=== PATIENT | female | born 1985 | race Caucasian/White ===

== ENCOUNTER 2018-11-13 04:51 | Inpatient (IN) | payer OTHER ==
[~2018-11-13] VITALS: Ht 157.5 cm; Wt 66.7 kg
--- NOTE | 2018-11-14 09:09 | PR ---
[facility] [address], [place] [address] Signed PP Progress Notes Datetime Report Generated by CPN: 11/14/2018 09:09 SUBJECTIVE: [id number] Pain: Within normal limits Nausea/Vomiting: Denies Flatus: Yes Vital Signs: [id number] Vital Signs: Reviewed; Within Normal Limits EXAM: [id number] Cardiovascular: Normal Respiratory: Normal Abdomen/Uterus: Normal Lochia: Normal Vulva/Perineum: Not Done Breasts: Not Done CVA Tenderness: Normal Extremities: Normal Incision: Not Applicable Progress: Not Applicable Exam Comments: Fundus firm U-2 nontender. Pt anxious for discharge so she can smoke IMPRESSION/PLAN/PROCEDURES: [id number] Impression: Normal progression Plan: Discharge Progress Notes: Pt seen and examined. Doing well. Ambulating, voiding, and tolerating full diet. Pain and lochia minimal. Bottle feeding. Pt anxious for discharge so she can smoke. Nicotine patches helping somewhat. Reviewed OB records. Plan f/u in 2 wks. Desires depo followed by tubal ligation for pp contraception Signing Physician: Thomas Peña DO Copies: ~ *Electronically Signed* 11/14/18 0909 THOMAS PEÑA DO PATIENT NAME: KAYLA GONZALEZ PROGRESS NOTE DATE OF : 81 PHYSICIAN: THOMAS PEÑA DO RPT #: [id number] REPORT IS CONFIDENTIAL AND NOT TO BE RELEASED WITHOUT AUTHORIZATION
== END 2018-11-14 10:55 | disposition home or self-care (01) | DRG 807 ==
LOC: FBCO 04:51 → FBC 05:12
PROVIDERS: ADMIT Obstetrics & Gynecology
PROC: 10E0XZZ Delivery of Products of Conception, External Approach (ICD-10-PCS; principal; 2018-11-13)
PROC: 10907ZC Drainage of Amniotic Fluid, Therapeutic from Products of Conception, Via Natural or Artificial Opening (ICD-10-PCS; 2018-11-13)
DX: O62.3 Precipitate labor (principal); Z37.0 Single live birth; Z3A.38 38 weeks gestation of pregnancy; O99.334 Smoking (tobacco) complicating childbirth; F17.210 Nicotine dependence, cigarettes, uncomplicated
CPT/HCPCS: 36415; 85027; J2590; Q0177

== ENCOUNTER 2019-04-14 18:33 | Emergency (ER) | payer OTHER ==
[~2019-04-14] VITALS: Ht 157.5 cm; Wt 62.6 kg
--- OUTSIDE RECORDS SUMMARY | ~2019-04-14 | XMS | Encounter Summary ---
Demographics + + + | Address | [address] | | | [place] [address] | + + + | Home Phone | | + + + | Preferred Language | Unknown | + + + | Marital Status | Single | + + + | Methodist Affiliation | Unknown | + + + | Race | Unknown | + + + | Ethnic Group | Unknown | + + + Author + + + | Author | [facility] | | | and [place] | + + + | Organization | [facility] | | | and [place] | + + + | Address | Unknown | + + + | Phone | Unavailable | + + + Support + + +---------+ + | Name | Relationship | Address | Phone | + + +---------+ + | Jolie Stock | ECON | Unknown | | + + +---------+ + Care Team Providers + +------+ + | Care Epidemiologist Name | Role | Phone | + +------+ + PCP | Unavailable | + +------+ + Encounter Details +--------+ + + + + | Date | Type | Department | Care Team | Description | +--------+ + + + + | 11/20/ | Hospital | [facility] | [place], | | | 2008 | Encounter | MED CTR EMERGENCY | David Thomas MD [address] | | | | | [place] [address] | [place] | | | | | [place], [place] | [place] [address] | | | | | [address] | [phone] | | | | | [phone] | | | +--------+ + + + + Social History + +-------+ +--------+------+ | Tobacco Use | Types | Packs/Day | Years | Date | | | | | Used | | + +-------+ +--------+------+ | Never Assessed | | | | | + +-------+ +--------+------+ + + + | Sex Assigned at | Date Recorded | | | | + + + | Not on file | | + + + + + + + | Job Start Date | Occupation | Industry | + + + + | Not on file | Not on file | Not on file | + + + + + + + + | Travel History | Travel Start | Travel End | + + + + + + | No recent travel history available. | + + documented as of this encounter Plan of Treatment Not on filedocumented as of this encounter Visit Diagnoses Not on filedocumented in this encounter"
--- OUTSIDE RECORDS SUMMARY | ~2019-04-14 | XMS | Encounter Summary ---
Demographics + + + | Address | [address] | | | [place] [address] | + + + | Home Phone | | + + + | Preferred Language | Unknown | + + + | Marital Status | Single | + + + | Bahai Affiliation | Unknown | + + + | Race | Unknown | + + + | Ethnic Group | Unknown | + + + Author + + + | Author | [facility] | | | and [place] | + + + | Organization | [facility] | | | and [place] | [...] Team Providers + +------+ + | Care Tester Sound Name | Role | Phone | + +------+ + PCP | Unavailable | + +------+ + Encounter Details +--------+ + + + + | Date | Type | Department | Care Team | Description | +--------+ + + + + | 04/30/ | Hospital | [facility] | Nestor Harden, | | | 1998 - | Encounter | MED CTR WOMENS | [id number] | | | | | [facility] [address] | [place] | | | 05/[birth year]/ | | [address], | [place] [address] | | | 2000 | | [place] [address] | [phone] | | | | | [phone] | | | +--------+ + + + [...]
--- OUTSIDE RECORDS SUMMARY | ~2019-04-14 | XMS | Encounter Summary ---
Demographics + + + | Address | [address] | | | [place] [address] | + + + | Home Phone | | + + + | Preferred Language | Unknown | + + + | Marital Status | Single | + + + | Christian Affiliation | Unknown | + + + | Race | Unknown | + + + | Ethnic Group | Unknown | + + + Author + + + | Author | [facility] | | | and [place] | + + + | Organization | [facility] | | | and [place] [...] Team Providers + +------+ + | Care Pool Manager Name | Role | Phone | + +------+ + PCP | Unavailable | + +------+ + Encounter Details +--------+ + + + + | Date | Type | Department | Care Team | Description | +--------+ + + + + | 12/17/ | Hospital | [facility] | Nestor Harden, | | | 2008 | Encounter | MED CTR LABORATORY | [id number] | | | | | [address] | [place] | | | | | [place] | [place], [place] [address] | | | | | [address] | [phone] | | | | | [phone] | | | +--------+ + + + [...]
--- OUTSIDE RECORDS SUMMARY | ~2019-04-14 | XMS | Encounter Summary ---
Demographics + + + | Address | [address] | | | [place] [address] | + + + | Home Phone | | + + + | Preferred Language | Unknown | + + + | Marital Status | Single | + + + | Samaritan Affiliation | Unknown | + + + | Race | Unknown | + + + | Ethnic Group | Unknown | + + + Author + + + | Author | [facility] | | | and [place] | + + + | Organization | [facility] | | | and [place] | [...] Team Providers + +------+ + | Care Air Carrier Maintenance Inspector Name | Role | Phone | + +------+ + PCP | Unavailable | + +------+ + Encounter Details +--------+ + + + + | Date | Type | Department | Care Team | Description | +--------+ + + + + | 02/02/ | Hospital | [facility] | Nestor Harden, | | | 1998 | Encounter | MED CTR GENERIC OP | [id number] | | | | | CONV DEPT [address] | [place] | | | | | [place], | [place] [address] | | | | | [place] [address] | [phone] | | | | | [phone] | | | +--------+ + + + [...]
--- OUTSIDE RECORDS SUMMARY | ~2019-04-14 | XMS | Encounter Summary ---
Demographics + + + | Address | [address] | | | [place] [address] | + + + | Home Phone | | + + + | Preferred Language | Unknown | + + + | Marital Status | Single | + + + | Orthodoxy Affiliation | Unknown | + + + | Race | Unknown | + + + | Ethnic Group | Unknown | + + + Author + + + | Author | [facility] | | | and [place] | + + + | Organization | [facility] | | | and [...] Team Providers + +------+ + | Care Sheriff Sergeant Name | Role | Phone | + +------+ + PCP | Unavailable | + +------+ + Encounter Details +--------+ + + + + | Date | Type | Department | Care Team | Description | +--------+ + + + + | 12/25/ | Hospital | [facility] | | | | 2001 | Encounter | MED CTR EMERGENCY | | | | | | CENTER [address] | | | | | | [place] | | | | | | [address] | | | | | | [phone] | | | +--------+ + + + [...]
--- OUTSIDE RECORDS SUMMARY | ~2019-04-14 | XMS | Encounter Summary ---
Demographics + + + | Address | [address] | | | [place] [address] | + + + | Home Phone | | + + + | Preferred Language | Unknown | + + + | Marital Status | Single | + + + | Religion Affiliation | Unknown | + + + | Race | Unknown | + + + | Ethnic Group | Unknown | + + + Author + + + | Author | [facility] | | | and [place] | + + + | Organization | [facility] | | | and [place] [...] Team Providers + +------+ + | Care Chair Pad Maker Name | Role | Phone | + +------+ + PCP | Unavailable | + +------+ + Encounter Details +--------+ + + + + | Date | Type | Department | Care Team | Description | +--------+ + + + + | 06/08/ | Hospital | [facility] | Gagandeep Humphries | | | 2009 - | Encounter | MED CTR EMERGENCY | MD Taras [address] | | | | | [place] [address] | [place] | | | 06/09/ | | [place] | [place] [address] | | | 2009 | | [address] | [phone] | | | | | [phone] | | | +--------+ + + + [...]
--- OUTSIDE RECORDS SUMMARY | ~2019-04-14 | XMS | Encounter Summary ---
Demographics + + + | Address | [address] | | | [place] [address] | + + + | Home Phone | | + + + | Preferred Language | Unknown | + + + | Marital Status | Single | + + + | Jew Affiliation | Unknown | + + + | Race | Unknown | + + + | Ethnic Group | Unknown | + + + Author + + + | Author | [facility] | | | and [place] | + + + | Organization | [facility] | | | and [...] Team Providers + +------+ + | Care Sql Server Architect Name | Role | Phone | + +------+ + PCP | Unavailable | + +------+ + Encounter Details +--------+ + + + + | Date | Type | Department | Care Team | Description | +--------+ + + + + | 05/25/ | Hospital | [facility] | | | | 2010 | Encounter | MED CTR EMERGENCY | | | | | | CENTER [address] | | | | | | [place] | | | | | | [address] | | | | | | [phone] | | | +--------+ + + + [...]
--- OUTSIDE RECORDS SUMMARY | ~2019-04-14 | XMS | Encounter Summary ---
Demographics + + + | Address | [address] | | | [place] [address] | + + + | Home Phone | | + + + | Preferred Language | Unknown | + + + | Marital Status | Single | + + + | Rastafarian Affiliation | Unknown | + + + | Race | Unknown | + + + | Ethnic Group | Unknown | + + + Author + + + | Author | [facility] | | | and [place] | + + + | Organization | [facility] | | | and [place] [...] Team Providers + +------+ + | Care Mutuel Department Manager Name | Role | Phone | + +------+ + | No, Physician | PCP | Unavailable | + +------+ + Reason for Visit + + + | Reason | Comments | + + + | Urinary Frequency | Rm 1; started yesterday, denies back pain or fever | + + + | Dysuria | bladder pain /10 | + + + Encounter Details +--------+---------+ + + + | Date | Type | Department | Care Team | Description | +--------+---------+ + + + | 11/22/ | Office | [facility] | Heidi Zimmerman | Urinary tract | | 2016 | Visit | CARE [address] | DO Raymond Solomon | infection with | | | | [place], [place] | [place] | hematuria, site | | | | [address] | [address] | unspecified (Primary | | | | [phone] | | Dx) | +--------+---------+ + + + Social History + +-------+ +--------+------+ | Tobacco Use | Types | Packs/Day | Years | Date | | | | | Used | | + +-------+ +--------+------+ | Current Every Day | | 0.5 | | | | Smoker | | | | | + +-------+ +--------+------+ + +---+---+---+ | Smokeless Tobacco: | | | | | Never Used | | | | + +---+---+---+ + + +---------+ + | Alcohol Use | Drinks/Week | oz/Week | Comments | + + +---------+ + | Yes | 0 Standard drinks | 0.0 | occ | | | or equivalent | | | + + +---------+ + + + + | Sex Assigned at [...] + + documented as of this encounter Last Filed Vital Signs + + + + + | Vital Sign | Reading | Time Taken | Comments | + + + + + | Blood Pressure | 108/66 | 11/23/2015 9:49 AM | | | | | PDT | | + + + + + | Pulse | 95 | 11/23/2015 9:49 AM | | | | | PDT | | + + + + + | Temperature | 36.8 C (98.3 F) | 11/23/2015 9:49 AM | | | | | PDT | | + + + + + | Respiratory Rate | 16 | 11/23/2015 9:49 AM | | | | | PDT | | + + + + + | Oxygen Saturation | 99% | 11/23/2015 9:49 AM | | | | | PDT | | + + + + + | Inhaled Oxygen | - | - | | | Concentration | | | | + + + + + | Weight | 55.2 kg (121 lb 11.2 | 11/23/2015 9:49 AM | | | | oz) | PDT | | + + + + + | Height | 157.5 cm (5' 2") | 11/23/2015 9:49 AM | | | | | PDT | | + + + + + | Body Mass Index | 22.26 | 11/23/2015 9:49 AM | | | | | PDT | | + + + + + documented in this encounter Patient Instructions Patient Instructions Heidi Zimmerman DO - 11/23/2015 10:02 AM PDTPrescription for Keflex and Pyridium has been sent to pharmacy. Take these medications as directed. Your urine has been sent for culture and if there are any abnormal results she will be noti fied Drink lots of fluids especially cranberry Symptoms worsen or fail to improveElectronically signed by Heidi Zimmerman DO at 10:02 AM PDT documented in this encounter Progress Notes Heidi Zimmerman DO - 11/23/2015 9:59 AM PDTFormatting of this note might be diffe rent from the original. Subjective: Patient ID: Katlyn Dubois is a 30 y.o. female. HPI Comments: Patient here with chief complaint of dysuria. She states that yesterday she started having some symptoms. She states that she thought that she just was dehydrated and so she started drinking a lot of water. Overnight she had to get several times urgently to go to the bathroom. She states that now it pelayo when she urinates and after she's done uri nating she still feels like she needs to go. Patient states that she has not had any flank pain. She's not had any fevers or chills. Patient states he has never been hospitalized fo r this. She'll her last UTI was several years ago. She denies any abnormal vaginal dischar ge and has no concerns for any STDs Patient's medications, allergies, past medical, surgical, social and family histories were obtained and reviewed as appropriate. Review of Systems All other systems reviewed and are negative. Objective: Physical Exam Constitutional: She is oriented to person, place, and time. She appears well-developed and well-nourished. Abdominal: Soft. Bowel sounds are normal. Patient is no flank pain on percussion Neurological: She is alert and oriented to person, place, and time. Skin: Skin is warm and dry. Nursing note and vitals reviewed. Assessment: UTI Plan: Pt is here with chief complaint of dysuria. She had a urinalysis that showed positive for nitrites and large leukocytes. There is also a moderate amount of blood. This was sent fo r culture and she will be notified of any abnormal results. Patient was started on Keflex and Pyridium and she should take these medications as directed. She is to drink lots of flu ids and stay well hydreated. She should return if symptoms worsen or fail to improve. Pt co mfortable with plan documented in this encounter Plan of Treatment Not on filedocumented as of this encounter Procedures + +--------+ + + + | Procedure Name | Priori | Date/Time | Associated Diagnosis | Comments | | | ty | | | | + +--------+ + + + | POCT URINALYSIS, | Routin | 11/23/2015 | Urinary tract | Results for this | | AUTO WITH CONF | e | 6:15 PM | infection with | procedure are in the | | | | PDT | hematuria, site | results section. | | | | | unspecified | | + +--------+ + + + | CULTURE, URINE | Routin | 11/23/2015 | Urinary tract | Results for this | | | e | 10:07 AM | infection with | procedure are in the | | | | PDT | hematuria, site | results section. | | | | | unspecified | | + +--------+ + + + documented in this encounter Results POCT Urinalysis Dipstick Automated (11/23/2015 6:15 PM PDT) + + + + + + | Component | Value | Ref Range | Performed | Pathologist | | | | | At | Signature | + + + + + + | Color, UA, | Yellow | Yellow, Light | | | | POC | | Yellow | | | + + + + + + | Clarity, | Turbid | | | | | UA, POC | | | | | + + + + + + | Glucose, | Negative | Negative | | | | UA, POC | | | | | + + + + + + | Bilirubin, | Negative | Negative | | | | UA, POC | | | | | + + + + + + | Ketones, | Negative | Negative, 100 | | | | UA, POC | | mg/dL | | | + + + + + + | Specific | 1.030 | 1.001 - 1.030 | | | | Edgar, | | | | | | UA, POC | | | | | + + + + + + | Blood, UA, | Moderate (A) | Negative | | | | POC | | | | | + + + + + + | pH, UA, POC | 6.5 | 5.0, 6.0, 7.0, | | | | | | 8.0, 5.5, 6.5, | | | | | | 7.5 | | | + + + + + + | Protein, | 100 mg/dL (A) | Negative | | | | UA, POC | | | | | + + + + + + | Urobilinoge | 1.0 E.U./dL | 0.2, Negative, | | | | n, UA, POC | | Normal, < 0.2 | | | | | | mg/dL, 1 mg/dL, | | | | | | < 0.2 E.U./dl, | | | | | | 1.0 E.U./dL, | | | | | | 0.2 mg/dL | | | + + + + + + | Nitrite, | Negative | Negative | | | | UA, POC | | | | | + + + + + + | Leukocyte | Large (A) | Negative | | | | Esterase, | | | | | | UA, POC | | | | | + + + + + + | Reducing | | | | | | Substances, | | | | | | Urine | | | | | + + + + + + | Ictotest | | Negative | | | + + + + + + | Remark | | | | | + + + + + + + + | Specimen | + + | Urine specimen | | (specimen) | + + Culture, Urine (11/23/2015 10:07 AM PDT) + + + + + + | Component | Value | Ref Range | Performed | Pathologist | | | | | At | Signature | + + + + + + | Culture | 50,000 CFU/ml Mixed | | [facility] | | | | pushpa (multiple | | [facility] | | | | morphologies | | MEDICAL | | | | present)Comment: | | CENTER - | | | | Suggests contamination | | LABORATORY | | | | with urogenital or skin | | | | | | pushpa.No further work-up | | | | | | to follow. | | | | + + + + + + + + | Specimen | + + | Urine - Urine | | specimen obtained by | | clean catch | | procedure (specimen) | + + + + + + + | Performing | Address | City/State/Zipcode | Phone Number | | Organization | | | | + + + + + | [facility] | [address] | [place], [place] | [phone] | | [facility] | | [address] | | | - LABORATORY | | | | + + + + + documented in this encounter Visit Diagnoses + + | Diagnosis | + + | Urinary tract infection with hematuria, site unspecified - Primary | + + documented in this encounter
--- OUTSIDE RECORDS SUMMARY | ~2019-04-14 | XMS | Encounter Summary ---
Demographics + + + | Address | [address] | | | [place] [address] | + + + | Home Phone | | + + + | Preferred Language | Unknown | + + + | Marital Status | Single | + + + | Mu-Ism Affiliation | Unknown | + + + | Race | Unknown | + + + | Ethnic Group | Unknown | + + + Author + + + | Author | [facility] | | | and [place] | + + + | Organization | [facility] | | | and [...] Team Providers + +------+ + | Care Transmitter Tester Name | Role | Phone | + +------+ + PCP | Unavailable | + +------+ + Encounter Details +--------+ + + + + | Date | Type | Department | Care Team | Description | +--------+ + + + + | 07/05/ | Hospital | [facility] | Gagandeep Humphries | | | 2009 | Encounter | MED CTR EMERGENCY | MD [address] | | | | | [place] [address] | [address] | | | | | [place], [place] | [place] [address] | | | | | [address] | [phone] | | | | | [phone] | | | +--------+ + + + [...]
--- OUTSIDE RECORDS SUMMARY | ~2019-04-14 | XMS | Encounter Summary ---
Demographics + + + | Address | [address] | | | [place] [address] | + + + | Home Phone | | + + + | Preferred Language | Unknown | + + + | Marital Status | Single | + + + | Catholic Affiliation | Unknown | + + + | Race | Unknown | + + + | Ethnic Group | Unknown | + + + Author + + + | Author | [facility] | | | and [place] | + + + | Organization | [facility] | | | and [place] [...] Team Providers + +------+ + | Care Career Specialist Name | Role | Phone | + +------+ + PCP | Unavailable | + +------+ + Encounter Details +--------+ + + + + | Date | Type | Department | Care Team | Description | +--------+ + + + + | 08/06/ | Hospital | [facility] | Heidi Zimmerman | | | 2011 | Encounter | MED CTR EMERGENCY | DO Raymond Solomon | | | | | CENTER [address] | [facility] [place] | | | | | [place], [place] | [address] | | | | | [address] | | | | | | [phone] | | | +--------+ + + + [...] | + +--------+ + + + | XR KNEE LEFT 1 - 2 | | 08/07/2011 | | Results for this | | VW | | 3:33 PM | | procedure are in the | | | | PDT | | results section. | + +--------+ + + + documented in this encounter Results XR Knee Left 1 - 2 Vw (08/07/2011 3:33 PM PDT) + + | Specimen | + + | | + + + + + | Narrative | Performed At | + + + | [facility] | [place] | | [address] | [facility] | | LEFT KNEE, LIMITED TWO VIEWS: | DIAG IMG | | 08/07/2011 CLINICAL HISTORY: SLIPPED IN THE TUB WITH LEFT KNEE | | | INJURY. FINDINGS: The knee is radiographically normal. No | | | fracture or dislocation is seen. The suprapatell ar bursa region is | | | free of effusion. No loose bodies are seen. IMPRESSION: | | | NEGATIVE KNEE SERIES. Dictated Date/Time: 08/08/2011 08:47 | | | Transcribed Date/Time: 08/08/2011 08:51 Manager Employee Benefits: | | | <Electronically Signed by Jeremiah Schuster MD> 08/08/11 0909 | | + + + + + | Procedure Note | + + | Aris Zaragoza Conversion - 07/05/2013 4:54 PM [facility] | | Diagnostic Imaging Department [address] [facility] [place] | | LEFT KNEE, LIMITED TWO VIEWS: 08/07/2011 CLINICAL | | HISTORY: SLIPPED IN THE TUB WITH LEFT KNEE INJURY. FINDINGS: The knee is | | radiographically normal. No fracture or dislocation is seen. The suprapatellar bursa | | region is free of effusion. No loose bodies are seen. IMPRESSION: NEGATIVE KNEE SERIES. | | Dictated Date/Time: 08/08/2011 08:47Transcribed Date/Time: 08/08/2011 | | 08:51Transcriptionist: <Electronically Signed by Jeremiah Schuster MD> 08/08/11 | | 0909 | | | |FINDINGS: The knee is radiographically normal. No fracture or dislocation is seen. The s uprapatell | |ar bursa region is free of effusion. No loose bodies are seen. | | | |IMPRESSION: NEGATIVE KNEE SERIES. | | | | | | | |Dictated Date/Time: 08/08/2011 08:47 | |Transcribed Date/Time: 08/08/2011 08:51 | |Manager Employee Benefits: [employer] | |<Electronically Signed by Jeremiah Schuster MD> 08/08/11 0909 | + + + +---------+ + + | Performing | Address | City/State/Zipcode | Phone Number | | Organization | | | | + +---------+ + + | [place] | | | | | [place] | | | | + +---------+ + + documented in this encounter Visit Diagnoses Not on filedocumented in this encounter"
--- OUTSIDE RECORDS SUMMARY | ~2019-04-14 | XMS | Clinical Summary ---
Demographics + + + | Address | [address] | | | [place] [address] | + + + | Home Phone | | + + + | Preferred Language | Unknown | + + + | Marital Status | Single | + + + | Roman Catholic Affiliation | Unknown | + + + | Race | Unknown | + + + | Ethnic Group | Unknown | + + + Author + + + | Author | [facility] | | | and [place] | + + + | Organization | [facility] | | | and [place] [...] Team Providers + +------+ + | Care Crisis Mental Health Therapist Name | Role | Phone | + +------+ + | No, Physician | PCP | Unavailable | + +------+ + Allergies No Known Allergies Medications + + + +---------+------+------+-------+ | Medication | Sig | Dispensed | Refills | Star | End | Statu | | | | | | t | Date | s | | | | | | Date | | | + + + +---------+------+------+-------+ | ALBUTEROL IN | Inhale into the | | 0 | | | Activ | | | lungs. | | | | | e | + + + +---------+------+------+-------+ Active Problems + + + | Problem | Noted Date | + + + | CHOLELITHIASIS, WITH ACUTE CHOLECYSTITIS, WITH OBSTRUCTION | 09/29/2011 | + + + Social History + +-------+ [...] | 0 Standard drinks | 0.0 | rare | | | or equivalent | | [...] recent travel history available. | + + Last Filed Vital Signs + + + + + | Vital Sign | Reading | Time Taken | Comments | + + + + + | Blood Pressure | 108/70 | 01/10/2017 1:57 AM | | | | | PDT | | + + + + + | Pulse | 99 | 01/10/2017 1:53 AM | | | | | PDT | | + + + + + | Temperature | 36.2 C (97.2 F) | 01/10/2017 12:10 AM | Simultaneous filing. | | | | PDT | User may not have | | | | | seen previous data. | + + + + + | Respiratory Rate | 22 | 01/10/2017 12:10 AM | Simultaneous filing. | | | | PDT | User may not have | | | | | seen previous data. | + + + + + | Oxygen Saturation | 100% | 01/10/2017 1:53 AM | | | | | PDT | | + + + + + | Inhaled Oxygen | - | - | | | Concentration | | | | + + + + + | Weight | 53.5 kg (118 lb) | 01/10/2017 12:10 AM | Simultaneous filing. | | | | PDT | User may not have | | | | | seen previous data. | + + + + + | Height | 157.5 cm (5' 2") | 01/10/2017 12:10 AM | Simultaneous filing. | | | | PDT | User may not have | | | | | seen previous data. | + + + + + | Body Mass Index | 21.58 | 01/10/2017 12:10 AM | | | | | PDT | | + + + + + Plan of Treatment + + + + + | Health Maintenance | Due Date | Last Done | Comments | + + + + + | Vaccine: | | | | | Dtap/Tdap/Td (1 - | 3 | | | | Tdap) | | | | + + + + + | Cervical Cancer | | | | | Screening (Pap) | 4 | | | + + + + + | Vaccine: Influenza | | | | | (#1) | 9 | | | + + + + + Results Not on filefrom Last 3 Months Insurance + +--------+ +--------+ +---------+--------+ | Payer | Benefi | Subscriber | Effect | Phone | Address | Type | | | t Plan | ID | etta | | | | | | / | | Dates | | | | | | Group | | | | | | + +--------+ +--------+ +---------+--------+ | [employer] | [employer] | [id number] | | [phone] | | Medica | | MEDICAID HMO | HEALTH | | 015-Pr | 1 | | id | | | MDCD | | esent | | | | | | [place] | | | | | | + +--------+ +--------+ +---------+--------+ + +--------+ +--------+ + + | Guarantor Name | Accoun | Relation to | Date | Phone | Billing Address | | | t Type | Patient | of | | | | | | | | | | + +--------+ +--------+ + + | Katlyn Dubois | Person | Self | [birth year] | [address] | | | al/Fam | | 1986 | [phone] | [place], [place] | | | [place] | | | [address] (Home) | [address] | + +--------+ +--------+ + + Advance Directives + + + + + | Type | Date Recorded | Patient | Explanation | | | | Box Chipper | | + + + + + | Power of | | | | | Malted Milk Supervisor | | | | + + + + + | Advance | 01/11/2016 10:51 | | | | Directive | PM | | | + + + + + + + + + + | Code Status | Date | Date | Comments | | | Activated | Inactivated | | + + + + + | Full Code | 07/31/2016 | 07/31/2016 | | | | 6:47 PM | 8:45 PM | | + + + + +
--- OUTSIDE RECORDS SUMMARY | ~2019-04-14 | XMS | Encounter Summary ---
Demographics + + + | Address | [address] | | | [place] [address] | + + + | Home Phone | | + + + | Preferred Language | Unknown | + + + | Marital Status | Single | + + + | Restoration Affiliation | Unknown | + + + | Race | Unknown | + + + | Ethnic Group | Unknown | + + + Author + + + | Author | [facility] | | | and [place] | + + + | Organization | [facility] | | | and [place] | [...] Team Providers + +------+ + | Care Editor In Chief Name | Role | Phone | + +------+ + PCP | Unavailable | + +------+ + Encounter Details +--------+ + + + + | Date | Type | Department | Care Team | Description | +--------+ + + + + | 10/05/ | Hospital | [facility] | | | | 2008 | Encounter | [facility] | | | | | CENTER [address] | | | | | | [place] | | | | | | [id number] | | | | | | [phone] | | | +--------+ + + + [...]
--- OUTSIDE RECORDS SUMMARY | ~2019-04-14 | XMS | Encounter Summary ---
Demographics + + + | Address | [address] | | | [place] [address] | + + + | Home Phone | | + + + | Preferred Language | Unknown | + + + | Marital Status | Single | + + + | Jain Affiliation | Unknown | + + + | Race | Unknown | + + + | Ethnic Group | Unknown | + + + Author + + + | Author | [facility] | | | and [place] | + + + | Organization | [facility] | | | and [place] | [...] Team Providers + +------+ + | Care Manager Wound Name | Role | Phone | + +------+ + PCP | Unavailable | + +------+ + Encounter Details +--------+ + + + + | Date | Type | Department | Care Team | Description | +--------+ + + + + | 02/08/ | Abstract | [facility] | [facility] | | | 2012 | | Conversion Location | [facility] | | | | | [phone] | | | +--------+ + + + [...] + + + | Blood Pressure | 110/62 | 09/29/2011 12:00 AM | | | | | PDT | | + + + + + | Pulse | - | - | | + + + + + | Temperature | - | - | | + + + + + | Respiratory Rate | - | - | | + + + + + | Oxygen Saturation | - | - | | + + + + + | Inhaled Oxygen | - | - | | | Concentration | | | | + + + + + | Weight | 54.4 kg (120 lb) | 09/29/2011 12:00 AM | | | | | PDT | | + + + + + | Height | 160 cm (5' 3") | 09/29/2011 12:00 AM | | | | | PDT | | + + + + + | Body Mass Index | 21.26 | 09/29/2011 12:00 AM | | | | | PDT | | + + + + + documented in this encounter Plan of Treatment Not on filedocumented as of this encounter Visit Diagnoses Not on filedocumented in this encounter
--- OUTSIDE RECORDS SUMMARY | ~2019-04-14 | XMS | Encounter Summary ---
Demographics + + + | Address | [address] | | | [place] [address] | + + + | Home Phone | | + + + | Preferred Language | Unknown | + + + | Marital Status | Single | + + + | Zoroastrianism Affiliation | Unknown | + + + | Race | Unknown | + + + | Ethnic Group | Unknown | + + + Author + + + | Author | [facility] | | | and [place] | + + + | Organization | [facility] | | | and [place] | + + + | Address | Unknown | + + + | Phone | Unavailable | + + + Support + + +---------+ + | Name | Relationship | Address | Phone | + + +---------+ + | Jolie Montrell | ECON | Unknown | | + + +---------+ + Care Team Providers + +------+ + | Care Delivery Sales Worker Name | Role | Phone | + +------+ + | No, Physician | PCP | Unavailable | + +------+ + Reason for Visit + + + | Reason | Comments | + + + | Anxiety | | + + + | Chest Pressure | | + + + Encounter Details +--------+ + + + + | Date | Type | Department | Care Team | Description | +--------+ + + + + | 01/10/ | Emergency | [facility] | Chan Hi, | Chest tightness or | | 2016 - | | [facility] | MD [address] | pressure (Primary | | | | CENTER [address] | [facility] | Dx); Palpitations | | 01/11/ | | [place] | [place] [address] | | | 2015 | | [address] | [phone] | | | | | [phone] | | | +--------+ + + + [...] + + + | Blood Pressure | 108/63 | 01/11/2016 11:30 PM | | | | | PDT | | + + + + + | Pulse | 88 | 01/11/2016 11:43 PM | | | | | PDT | | + + + + + | Temperature | 36.4 C (97.5 F) | 01/11/2016 8:24 PM | | | | | PDT | | + + + + + | Respiratory Rate | 15 | 01/11/2016 11:30 PM | | | | | PDT | | + + + + + | Oxygen Saturation | 100% | 01/11/2016 11:43 PM | | | | | PDT | | + + + + + | Inhaled Oxygen | - | - | | | Concentration | | | | + + + + + | Weight | 54.4 kg (120 lb) | 01/11/2016 8:24 PM | | | | | PDT | | + + + + + | Height | 157.5 cm (5' 2") | 01/11/2016 8:24 PM | | | | | PDT | | + + + + + | Body Mass Index | 21.95 | 01/11/2016 8:24 PM | | | | | PDT | | + + + + + documented in this encounter Discharge Instructions Instructions Chan Hi MD - 01/11/2016Avoid caffeine or any other stimulants Establish a primary care provider and follow up with him/her Return if symptoms worsen or other concerns develop AttachmentsThe following attachments cannot be sent through Care Everywhere.CHEST PAIN, UN[facility] ERTAIN CAUSE ([place])PALPITATIONS ([place])documented in this encounter Medications at Time of Discharge + + + +---------+--------+ + | Medication | Sig | Dispensed | Refills | Start | End Date | | | | | | Date | | + + + +---------+--------+ + | ALBUTEROL IN | Inhale into the | | 0 | | | | | lungs. | | | | | + + + +---------+--------+ + documented as of this encounter Plan of Treatment Not on filedocumented as of this encounter Procedures + +--------+ + + + | Procedure Name | Priori | Date/Time | Associated Diagnosis | Comments | | | ty | | | | + +--------+ + + + | HOLTER MONITOR - 48 | Routin | 01/19/2016 | | Results for this | | HOUR | e | 12:23 PM | | procedure are in the | | | | PDT | | results section. | + +--------+ + + + | XR CHEST AP PORTABLE | STAT | 01/11/2016 | | Results for this | | | | 10:31 PM | | procedure are in the | | | | PDT | | results section. | + +--------+ + + + | TROPONIN I | Add-On | 01/11/2016 | | Results for this | | | | 10:20 PM | | procedure are in the | | | | PDT | | results section. | + +--------+ + + + | D-DIMER | STAT | 01/11/2016 | | Results for this | | | | 10:20 PM | | procedure are in the | | | | PDT | | results section. | + +--------+ + + + | CBC WITH | STAT | 01/11/2016 | | Results for this | | DIFFERENTIAL | | 10:20 PM | | procedure are in the | | | | PDT | | results section. | + +--------+ + + + | TSH | STAT | 01/11/2016 | | Results for this | | | | 10:20 PM | | procedure are in the | | | | PDT | | results section. | + +--------+ + + + | B TYPE NATRIURETIC | STAT | 01/11/2016 | | Results for this | | PEPTIDE | | 10:20 PM | | procedure are in the | | | | PDT | | results section. | + +--------+ + + + | MAGNESIUM | STAT | 01/11/2016 | | Results for this | | | | 10:20 PM | | procedure are in the | | | | PDT | | results section. | + +--------+ + + + | BASIC METABOLIC | STAT | 01/11/2016 | | Results for this | | PANEL | | 10:20 PM | | procedure are in the | | | | PDT | | results section. | + +--------+ + + + | ECG 12 LEAD | STAT | 01/11/2016 | | Results for this | | | | 9:18 PM | | procedure are in the | | | | PDT | | results section. | + +--------+ + + + documented in this encounter Results Holter monitor - 48 hour (01/19/2016 12:23 PM PDT) + + + | Narrative | Performed At | + + + | Leta Iglesias MD 01/19/2016 12:23 PATIENT NAME: Katlyn VALENTINE | | Clair Dubois : 1985: AGE: 30 y.o. MEDICAL RECORD | | | NUMBER: [id number] PRIMARY CARE: No Physician on file | | | READING TESTING AND REGULATING TECHNICIAN: Leta Iglesias MD 24-HOUR HOLTER | | | MONITOR REPORT DATE: 01/11/2016 IMPRESSION: 1. | | | The predominant rhythm is normal sinus with the heart rate | | | ranging between 68 and 140 beats per minute. The average heart | | | rate was 93 beats per minute during the 24:14 hour recording. 2. | | | Very rare premature ventricular contractions all in singles. 3. | | | Very rare premature atrial contractions including two paroxysmal | | | atrial tachycardia runs. The longest run was 5 beats and the | | | maximum rate was 102 beats per minute (13:55-1). Also noted were | | | rare (8) non-conducting P-waves. 4. 203 runs of sinus tachycardia. | | | The longest run was 151 beats (12:58-1) and the maximum rate was | | | 149 beats per minute (14:18-2). 5. The patient did not return a | | | diary. Signed by: Leta Iglesias MD [facility] 01/19/2016, | | | 10:08 | | + + + + +---------+ + + | Performing | Address | City/State/Zipcode | Phone Number | | Organization | | | | + +---------+ + + | [facility] | | | | + +---------+ + + XR Chest AP Portable (01/11/2016 10:31 PM PDT) + + | Specimen | + + | | + + + + + | Narrative | Performed At | + + + | XR CHEST AP PORTABLE 01/11/2016 10:31 PM HISTORY: ANXIETY CHEST | [facility] | | PRESSURE. COMPARISON: None. Findings: Heart size is within | | | normal limits. Aorta is normal. Mediastinum is unremarkable. Central | | | pulmonary vasculature is normal. The bilateral lungs are clear with | | | no evidence for pleural effusion or pneumothorax. There are no acute | | | osseous abnormalities. IMPRESSION - No acute findings. | | | Dictated and Signed by: Ismael Tee MD Electronically signed: | | | 01/12/2016 9:04 AM | | + + + + + | Procedure Note | + + | Nik, Rad Results In - 01/12/2016 9:07 AM PDT XR CHEST AP PORTABLE 01/11/2016 10:31 PM | | | | HISTORY: ANXIETY | | CHEST PRESSURE. | | | | COMPARISON: None. | | | | Findings: | | Heart size is within normal limits. Aorta is normal. Mediastinum is | | unremarkable. Central pulmonary vasculature is normal. The bilateral lungs are | | clear with no evidence for pleural effusion or pneumothorax. There are no acute | | osseous abnormalities. | | | | IMPRESSION - | | No acute findings. | | | | Dictated and Signed by: Ismael Tee MD | | Electronically signed: 01/12/2016 9:04 AM | + + + +---------+ + + | Performing | Address | City/State/Zipcode | Phone Number | | Organization | | | | + +---------+ + + | [facility] | | | | + +---------+ + + Troponin I (01/11/2016 10:20 PM PDT) + + + + + + | Component | Value | Ref Range | Performed | Pathologist | | | | | At | Signature | + + + + + + | Troponin I | <0.01Comment: Reference | <0.06 ng/mL | [facility] | | | | Ranges:0.00-0.06 = | | [facility] | | | | NORMAL>0.06 = | | MEDICAL | | | | SUSPICIOUS FOR | | CENTER - | | | | MYOCARDIAL DAMAGE NOTE: | | LABORATORY | | | | Values greater than 0.50 | | | | | | ng/mL have been shown | | | | | | to be strongly | | | | | | associated with acute | | | | | | myocardial infarction. | | | | | | The [employer] | | | | | | Cardiology (ACC) | | | | | | recommends a decision | | | | | | limit of 0.06 ng/mL for | | | | | | this assay. Results | | | | | | greater than 0.06 can | | | | | | reflect a pre-infarct | | | | | | acute coronary syndrome, | | | | | | but can also reflect | | | | | | myocardial necrosis or | | | | | | injury that is not due | | | | | | to coronary artery | | | | | | disease. Some of these | | | | | | causes are sepsis, | | | | | | hypocolemia, atrial | | | | | | fibrillation, heart | | | | | | failure, pulmonary | | | | | | embolism, myocarditis, | | | | | | myocardial contusion, | | | | | | and renal failure. The | | | | | | diagnosis of myocardial | | | | | | infarction should be | | | | | | based on a combination | | | | | | of the patient's | | | | | | clinical presentation | | | | | | and the clinical | | | | | | laboratory test results | | | | | | (especially serial | | | | | | troponin levels). | | | | + + + + + + + + | Specimen | + + | Blood | + + + + + + + | Performing | Address | City/State/Zipcode | Phone Number | | Organization | | | | + + + + + | [facility] | [address] | [place] | [phone] | | [facility] | | [address] | | | - LABORATORY | | | | + + + + + TSH (01/11/2016 10:20 PM PDT) + + + + + + | Component | Value | Ref Range | Performed | Pathologist | | | | | At | Signature | + + + + + + | TSH | 1.08Comment: All TSH | 0.34 - 5.60 | [facility] | | | | samples are screened | uIU/mL | [facility] | | | | using a 2nd Generation | | MEDICAL | | | | test, and are reflexed | | CENTER - | | | | to a 3rd Generation test | | LABORATORY | | | | if indicated. | | | | + + + + + + + + | Specimen | + + | Blood | + + + + + + + | Performing | Address | City/State/Zipcode | Phone Number | | Organization | | | | + + + + + | [facility] | [address] | [place] | [phone] | | [facility] | | [address] | | | - LABORATORY | | | | + + + + + Magnesium (01/11/2016 10:20 PM PDT) + +-------+ + + + | Component | Value | Ref Range | Performed | Pathologist | | | | | At | Signature | + +-------+ + + + | Magnesium | 2.1 | 1.8 - 2.5 mg/dL | [facility] | | | | | | [facility] | | | | | | MEDICAL | | | | | | CENTER - | | | | | | LABORATORY | | + +-------+ + + + + + | Specimen | + + | Blood | + + + + + + + | Performing | Address | City/State/Zipcode | Phone Number | | Organization | | | | + + + + + | [facility] | [address] | [place] | [phone] | | [facility] | | [address] | | | - LABORATORY | | | | + + + + + Basic Metabolic Panel (01/11/2016 10:20 PM PDT) + + + + + + | Component | Value | Ref Range | Performed | Pathologist | | | | | At | Signature | + + + + + + | Na | 138 | 136 - 149 | [facility] | | | | | mmol/L | [facility] | | | | | | MEDICAL | | | | | | CENTER - | | | | | | LABORATORY | | + + + + + + | K | 3.6 | 3.5 - 5.1 | [facility] | | | | | mmol/L | [facility] | | | | | | MEDICAL | | | | | | CENTER - | | | | | | LABORATORY | | + + + + + + | Cl | 107 | 98 - 109 mmol/L | [facility] | | | | | | [facility] | | | | | | MEDICAL | | | | | | CENTER - | | | | | | LABORATORY | | + + + + + + | CO2 | 21 (L) | 24 - 31 mmol/L | [facility] | | | | | | [facility] | | | | | | MEDICAL | | | | | | CENTER - | | | | | | LABORATORY | | + + + + + + | Anion Gap | 10 | 3 - 16 mmol/L | [facility] | | | | | | [facility] | | | | | | MEDICAL | | | | | | CENTER - | | | | | | LABORATORY | | + + + + + + | Glucose | 83 | 70 - 109 mg/dL | [facility] | | | | | | [facility] | | | | | | MEDICAL | | | | | | CENTER - | | | | | | LABORATORY | | + + + + + + | BUN | 7 | 7 - 18 mg/dL | [facility] | | | | | | [facility] | | | | | | MEDICAL | | | | | | CENTER - | | | | | | LABORATORY | | + + + + + + | Creatinine | 0.49 (L) | 0.60 - 1.30 | [facility] | | | | | mg/dL | [facility] | | | | | | MEDICAL | | | | | | CENTER - | | | | | | LABORATORY | | + + + + + + | eGFR if not | >60Comment: GLOMERULAR | >=60 | [facility] | | | | FILTRATION | mL/min/1.73m2 | [facility] | | | CAMEROONIAN | RATE,ESTIMATED | | MEDICAL | | | | mL/min/1.21v5Xryv than | | CENTER - | | | | 60 Chronic kidney | | LABORATORY | | | | disease,if found over a | | | | | | 3-month period.Less than | | | | | | 15 Kidney failureFor | | | | | | | | | | | | Americans,multiply the | | | | | | calculated GFR by 1.21. | | | | | | | | | | + + + + + + | Calcium | 9.3 | 8.3 - 10.5 | [facility] | | | | | mg/dL | [facility] | | | | | | MEDICAL | | | | | | CENTER - | | | | | | LABORATORY | | + + + + + + | BUN/Creatin | 14.3 | | [facility] | | | ine Ratio | | | [facility] | | | | | | MEDICAL | | | | | | CENTER - | | | | | | LABORATORY | | + + + + + + + + | Specimen | + + | Blood | + + + + + + + | Performing | Address | City/State/Zipcode | Phone Number | | Organization | | | | + + + + + | [facility] | [address] | [place] | [phone] | | [facility] | | [address] | | | - LABORATORY | | | | + + + + + CBC with Differential (01/11/2016 10:20 PM PDT) + + + + + + | Component | Value | Ref Range | Performed | Pathologist | | | | | At | Signature | + + + + + + | WBC | 7.4 | 4.0 - 11.0 K/uL | [facility] | | | | | | [facility] | | | | | | MEDICAL | | | | | | CENTER - | | | | | | LABORATORY | | + + + + + + | RBC | 4.58 | 3.70 - 5.20 | [facility] | | | | | M/uL | [facility] | | | | | | MEDICAL | | | | | | CENTER - | | | | | | LABORATORY | | + + + + + + | Hemoglobin | 13.7 | 11.5 - 16.0 | [facility] | | | | | g/dL | [facility] | | | | | | MEDICAL | | | | | | CENTER - | | | | | | LABORATORY | | + + + + + + | Hematocrit | 39.1 | 34.0 - 47.0 % | [facility] | | | | | | [facility] | | | | | | MEDICAL | | | | | | CENTER - | | | | | | LABORATORY | | + + + + + + | MCV | 85.3 | 83.0 - 101.0 fL | [facility] | | | | | | [facility] | | | | | | MEDICAL | | | | | | CENTER - | | | | | | LABORATORY | | + + + + + + | MCH | 30.0 | 28.0 - 35.0 pg | [facility] | | | | | | [facility] | | | | | | MEDICAL | | | | | | CENTER - | | | | | | LABORATORY | | + + + + + + | MCHC | 35.2 | 32.0 - 36.0 | [facility] | | | | | g/dL | [facility] | | | | | | MEDICAL | | | | | | CENTER - | | | | | | LABORATORY | | + + + + + + | RDW-CV | 13.0 | <15.0 % | [facility] | | | | | | [facility] | | | | | | MEDICAL | | | | | | CENTER - | | | | | | LABORATORY | | + + + + + + | Platelet | 236 | 140 - 440 K/uL | [facility] | | | Count | | | [facility] | | | | | | MEDICAL | | | | | | CENTER - | | | | | | LABORATORY | | + + + + + + | MPV | 7.3 | fL | [facility] | | | | | | [facility] | | | | | | MEDICAL | | | | | | CENTER - | | | | | | LABORATORY | | + + + + + + | % | 76.2 | 45.0 - 82.0 % | [facility] | | | Neutrophils | | | [facility] | | | | | | MEDICAL | | | | | | CENTER - | | | | | | LABORATORY | | + + + + + + | % | 15.8 (L) | 20.0 - 45.0 % | [facility] | | | Lymphocytes | | | [facility] | | | | | | MEDICAL | | | | | | CENTER - | | | | | | LABORATORY | | + + + + + + | % Monocytes | 5.9 | 4.0 - 12.0 % | [facility] | | | | | | [facility] | | | | | | MEDICAL | | | | | | CENTER - | | | | | | LABORATORY | | + + + + + + | % | 1.3 | 0.0 - 5.0 % | [facility] | | | Eosinophils | | | [facility] | | | | | | MEDICAL | | | | | | CENTER - | | | | | | LABORATORY | | + + + + + + | % Basophils | 0.8 | 0.0 - 1.0 % | [facility] | | | | | | [facility] | | | | | | MEDICAL | | | | | | CENTER - | | | | | | LABORATORY | | + + + + + + | Absolute | 5.60 | 1.80 - 8.50 | [facility] | | | Neutrophils | | K/uL | [facility] | | | | | | MEDICAL | | | | | | CENTER - | | | | | | LABORATORY | | + + + + + + | Absolute | 1.20 | 0.60 - 3.20 | [facility] | | | Lymphocytes | | K/uL | [facility] | | | | | | MEDICAL | | | | | | CENTER - | | | | | | LABORATORY | | + + + + + + | Absolute | 0.40 | 0.00 - 1.00 | [facility] | | | Monocytes | | K/uL | [facility] | | | | | | MEDICAL | | | | | | CENTER - | | | | | | LABORATORY | | + + + + + + | Absolute | 0.10 | 0.00 - 0.40 | [facility] | | | Eosinophils | | K/uL | [facility] | | | | | | MEDICAL | | | | | | CENTER - | | | | | | LABORATORY | | + + + + + + | Absolute | 0.10 | 0.00 - 0.10 | [facility] | | | Basophils | | K/uL | [facility] | | | | | | MEDICAL | | | | | | CENTER - | | | | | | LABORATORY | | + + + + + + + + | Specimen | + + | Blood | + + + + + + + | Performing | Address | City/State/Zipcode | Phone Number | | Organization | | | | + + + + + | [facility] | [address] | [place] | [phone] | | [facility] | | [address] | | | - LABORATORY | | | | + + + + + D-Dimer (01/11/2016 10:20 PM PDT) + + + + + + | Component | Value | Ref Range | Performed | Pathologist | | | | | At | Signature | + + + + + + | D-Dimer | 0.43Comment: This | <=0.50 ug/ml | [facility] | | | Quantitativ | quantitative D-Dimer | | [facility] | | | e | assay has been evaluated | | MEDICAL | | | | for screening for | | CENTER - | | | | venous thrombotic | | LABORATORY | | | | disease, and may be | | | | | | useful in ruling out, | | | | | | but not ruling in | | | | | | disease. Values less | | | | | | than 0.50 ug/mL FEU | | | | | | (Fibrinogen Equivalent | | | | | | Units) have a negative | | | | | | predictive value of | | | | | | approximately 95% for | | | | | | ruling out large | | | | | | pulmonary emboli or | | | | | | proximal deep vein | | | | | | thrombosis. Distal DVT | | | | | | are not excluded. An | | | | | | elevated D-dimer can be | | | | | | present in patients with | | | | | | liver disease, | | | | | | , eclampsia, | | | | | | heart disease and some | | | | | | cancers among other | | | | | | conditions. The presence | | | | | | of rheumatoid factor at | | | | | | a level >50 IU/mL may | | | | | | falsely elevate the | | | | | | determined D-dimer | | | | | | levels. | | | | + + + + + + + + | Specimen | + + | Blood | + + + + + + + | Performing | Address | City/State/Zipcode | Phone Number | | Organization | | | | + + + + + | [facility] | [address] | [place] | [phone] | | [facility] | | [address] | | | - LABORATORY | | | | + + + + + B Type Natriuretic Peptide (01/11/2016 10:20 PM PDT) + +-------+ + + + | Component | Value | Ref Range | Performed | Pathologist | | | | | At | Signature | + +-------+ + + + | BNP | 28 | <100 pg/mL | [facility] | | | | | | [facility] | | | | | | MEDICAL | | | | | | CENTER - | | | | | | LABORATORY | | + +-------+ + + + + + | Specimen | + + | Blood | + + + + + + + | Performing | Address | City/State/Zipcode | Phone Number | | Organization | | | | + + + + + | [facility] | [address] | [place] | [phone] | | [facility] | | [address] | | | - LABORATORY | | | | + + + + + ECG 12 lead (01/11/2016 9:18 PM PDT) + + + + + + | Component | Value | Ref Range | Performed | Pathologist | | | | | At | Signature | + + + + + + | VENTRICULAR | 78 | BPM | [facility] | | | RATE EKG | | | | | + + + + + + | ATRIAL RATE | 78 | BPM | [facility] | | + + + + + + | P-R | 136 | ms | [facility] | | | INTERVAL | | | | | + + + + + + | QRS | 74 | ms | [facility] | | | DURATION | | | | | + + + + + + | Q-T | 386 | ms | [facility] | | | INTERVAL | | | | | + + + + + + | Q-T | 440 | ms | [facility] | | | INTERVAL | | | | | | (CORRECTED) | | | | | + + + + + + | P WAVE AXIS | 62 | degrees | [facility] | | + + + + + + | QRS AXIS | 77 | degrees | [facility] | | + + + + + + | T AXIS | 69 | degrees | [facility] | | + + + + + + | INTERPRETAT | Normal sinus | | [facility] | | | ION TEXT | rhythmNormal ECGNo | | | | | | previous ECGs | | | | | | availableConfirmed by | | | | | | LETA IGLESIAS MD | | | | | | ([id number]) on 01/12/2016 | | | | | | 6:14:13 AM | | | | + + + + + + + + | Specimen | + + | | + + + + + | Narrative | Performed At | + + + | | | + + + + +---------+ + + | Performing | Address | City/State/Zipcode | Phone Number | | Organization | | | | + +---------+ + + | [facility] | | | | + +---------+ + + documented in this encounter Visit Diagnoses + + | Diagnosis | + + | Chest tightness or pressure - Primary Other chest pain | + + | Palpitations | + + documented in this encounter
--- OUTSIDE RECORDS SUMMARY | ~2019-04-14 | XMS | Encounter Summary ---
Demographics + + + | Address | [address] | | | [place] [address] | + + + | Home Phone | | + + + | Preferred Language | Unknown | + + + | Marital Status | Single | + + + | Gnosticist Affiliation | Unknown | + + + | Race | Unknown | + + + | Ethnic Group | Unknown | + + + Author + + + | Author | [facility] | | | and [place] | + + + | Organization | [facility] | | | and [place] [...] Team Providers + +------+ + | Care Slitter And Cutter Operator Name | Role | Phone | + +------+ + | No, Physician | PCP | Unavailable | + +------+ + Encounter Details +--------+ + + + + | Date | Type | Department | Care Team | Description | +--------+ + + + + | 06/15/ | Hospital | [facility] | Rodri Ogden | Encounter for | | 2017 | Encounter | [address] | MD Keshav [address] | supervision of | | | | [place] | [place] | normal , | | | | [phone] | [id number] | antepartum, | | | | [phone] | | unspecified | | | | | | | +--------+ + + + [...] + + documented as of this encounter Medications at Time of Discharge [...] | + +--------+ + + + | US OB 14 + WEEKS | Routin | 06/15/2016 | Encounter for | Results for this | | SINGLE OR FIRST | e | 3:00 PM | supervision of | procedure are in the | | GESTATION | | PST | normal , | results section. | | | | | antepartum, | | | | | | unspecified | | | | | | | | + +--------+ + + + documented in this encounter Results US OB 14 + Week Singl or First Gestation (06/15/2016 3:00 PM PST) + + | Specimen | + + | | + + + +--------- ------+ | Narrative | Performe d At | + +--------- ------+ | US OB 14 + | [facility] | | WEEKS SINGLE OR FIRST GESTATION 06/15/2016 3:00 PM HISTORY: Encounter | | | for supervision of normal , antepartum, unspecifiedgravidity. | | | COMPARISON: None. PROTOCOL: Singh scale and Doppler images of the | | | fetus with transabdominalimaging. FINDINGS:The patient's last | | | menstrual period was 11/16/2015., P: 5Based on LMP, the EGA is 30 | | | weeks 2 days. The estimated delivery date is08/22/2016.Based on the | | | current ultrasound, the EGA is 30 weeks 5 days. The estimateddelivery | | | date is 08/19/2016. MEASUREMENTS:BPD: 76.5 mm, 30 weeks 5 daysHC: 281.1 | | | mm, 30 weeks 6 daysAC: 266.9 mm, 30 weeks 5 daysFL: 58.8 mm, 30 weeks | | | 5 daysEFW: 1633 g, 54% by LMP, 38% by ultrasound Cephalic index: 77.7 | | | (normal range 70.0-86.0)HC/AC ratio: 1.05Fetal heart rate: 139 bpm, | | | with a normal cardiac rhythm. MATERNAL ANATOMY:The cervix is long and | | | closed, measuring 3.78 cm in length.The uterus is normal.The ovaries | | | are not seen. DESCRIPTION:Placental position: Posterior, low | | | lying, about 3.9 cm from internal cervical osFetal position: | | | VertexAmniotic fluid: Normal ANATOMY:A three-vessel cord is | | | seen.Cord insertion is normal.Motion is detected.The lower | | | extremities, upper extremities, spine, bladder, kidneys, | | | stomach,abdominal wall, and diaphragm are normal.A four-chamber heart | | | is observed with normal LVOT and RVOT. Cardiac rhythm isnormal. | | | HEAD:Face, nose, lips, midline falx, cavum septum pellucidum, lateral | | | ventricles,choroid plexus, cerebellum, and cistern magna are normal. | | | Evaluation is somewhatlimited due to a difficult angle. IMPRESSION | | | -Single live fetus, growth concordant with dates. Dictated and Signed | | | by: Ismael Tee MD Electronically signed: 06/17/2016 10:52 AM | | | heart rate: 139 bpm, with a normal cardiac rhythm. | | | | | |MATERNAL ANATOMY: | | |The cervix is long and closed, measuring 3.78 cm in length. | | |The uterus is normal. | | |The ovaries are not seen. | | | | | | DESCRIPTION: | | |Placental position: Posterior, low lying, about 3.9 cm from internal cervical os | | | position: Vertex | | |Amniotic fluid: Normal | | | | | | ANATOMY: | | |A three-vessel cord is seen. | | |Cord insertion is normal. | | |Motion is detected. | | |The lower extremities, upper extremities, spine, bladder, kidneys, stomach, | | |abdominal wall, and diaphragm are normal. | | |A four-chamber heart is observed with normal LVOT and RVOT. Cardiac rhythm is | | |normal. | | | | | | HEAD: | | |Face, nose, lips, midline falx, cavum septum pellucidum, lateral ventricles, | | |choroid plexus, cerebellum, and cistern magna are normal. Evaluation is somewhat | | |limited due to a difficult angle. | | | | | |IMPRESSION - | | |Single live fetus, growth concordant with dates. | | | | | |Dictated and Signed by: Ismael Tee MD | | | Electronically signed: 06/17/2016 10:52 AM | | | | | + +--------- ------+ + + | Procedure Note | + + | Nik, Aris Results In - 06/17/2016 10:56 AM PST US OB 14 + WEEKS SINGLE OR FIRST | | GESTATION 06/15/2016 3:00 PM HISTORY: Encounter for supervision of normal , | | antepartum, unspecifiedgravidity.COMPARISON: None.PROTOCOL: Singh scale and Doppler | | images of the fetus with transabdominalimaging.FINDINGS:The patient's last menstrual | | period was 11/16/2015., P: 5Based on LMP, the EGA is 30 weeks 2 days. The estimated | | delivery date is08/22/2016.Based on the current ultrasound, the EGA is 30 weeks 5 days. | | The estimateddelivery date is 08/19/2016.MEASUREMENTS:BPD: 76.5 mm, 30 weeks 5 daysHC: | | 281.1 mm, 30 weeks 6 daysAC: 266.9 mm, 30 weeks 5 daysFL: 58.8 mm, 30 weeks 5 daysEFW: | | 1633 g, 54% by LMP, 38% by ultrasound Cephalic index: 77.7 (normal range 70.0-86.0)HC/AC | | ratio: 1.05Fetal heart rate: 139 bpm, with a normal cardiac rhythm.MATERNAL ANATOMY:The | | cervix is long and closed, measuring 3.78 cm in length.The uterus is normal.The ovaries | | are not seen. DESCRIPTION:Placental position: Posterior, low lying, about 3.9 cm | | from internal cervical osFetal position: VertexAmniotic fluid: NormalFETAL ANATOMY:A | | three-vessel cord is seen.Cord insertion is normal.Motion is detected.The lower | | extremities, upper extremities, spine, bladder, kidneys, stomach,abdominal wall, and | | diaphragm are normal.A four-chamber heart is observed with normal LVOT and RVOT. Cardiac | | rhythm isnormal. HEAD:Face, nose, lips, midline falx, cavum septum pellucidum, | | lateral ventricles,choroid plexus, cerebellum, and cistern magna are normal. Evaluation | | is somewhatlimited due to a difficult angle.IMPRESSION -Single live fetus, growth | | concordant with dates. Dictated and Signed by: Ismael Tee MD Electronically signed: | | 06/17/2016 10:52 AM | |AC: 266.9 mm, 30 weeks 5 days | |FL: 58.8 mm, 30 weeks 5 days | |EFW: 1633 g, 54% by LMP, 38% by ultrasound | |Cephalic index: 77.7 (normal range 70.0-86.0) | |HC/AC ratio: 1.05 | | heart rate: 139 bpm, with a normal cardiac rhythm. | | | |MATERNAL ANATOMY: | |The cervix is long and closed, measuring 3.78 cm in length. | |The uterus is normal. | |The ovaries are not seen. | | | | DESCRIPTION: | |Placental position: Posterior, low lying, about 3.9 cm from internal cervical os | | position: Vertex | |Amniotic fluid: Normal | | | | ANATOMY: | |A three-vessel cord is seen. | |Cord insertion is normal. | |Motion is detected. | |The lower extremities, upper extremities, spine, bladder, kidneys, stomach, | |abdominal wall, and diaphragm are normal. | |A four-chamber heart is observed with normal LVOT and RVOT. Cardiac rhythm is | |normal. | | | | HEAD: | |Face, nose, lips, midline falx, cavum septum pellucidum, lateral ventricles, | |choroid plexus, cerebellum, and cistern magna are normal. Evaluation is somewhat | |limited due to a difficult angle. | | | |IMPRESSION - | |Single live fetus, growth concordant with dates. | | | |Dictated and Signed by: Ismael Tee MD | | Electronically signed: 06/17/2016 10:52 AM | + + + +---------+ + + | Performing | Address | City/State/Zipcode | Phone Number | | Organization | | | | + +---------+ + + | [facility] | | | | + +---------+ + + documented in this encounter Visit Diagnoses + + | Diagnosis | + + | Encounter for supervision of normal , antepartum, unspecified | + + documented in this encounter"
--- OUTSIDE RECORDS SUMMARY | ~2019-04-14 | XMS | Encounter Summary ---
Demographics + + + | Address | [address] | | | [place] [address] | + + + | Home Phone | | + + + | Preferred Language | Unknown | + + + | Marital Status | Single | + + + | Nondenominational Affiliation | Unknown | + + + | Race | Unknown | + + + | Ethnic Group | Unknown | + + + Author + + + | Author | [facility] | | | and [place] | + + + | Organization | [facility] | | | and [...] Team Providers + +------+ + | Care Regional Sales Manager Name | Role | Phone | + +------+ + PCP | Unavailable | + +------+ + Encounter Details +--------+ + + + + | Date | Type | Department | Care Team | Description | +--------+ + + + + | 07/18/ | Hospital | [facility] | | | | 1999 | Encounter | [facility] | | | | | CENTER [address] | | | | | | [place] | | | | | | [address] | | | | | | [phone] | | | +--------+ + + + [...]
--- OUTSIDE RECORDS SUMMARY | ~2019-04-14 | XMS | Encounter Summary ---
Demographics + + + | Address | [address] | | | [place] [address] | + + + | Home Phone | | + + + | Preferred Language | Unknown | + + + | Marital Status | Single | + + + | Anglican Affiliation | Unknown | + + + | Race | Unknown | + + + | Ethnic Group | Unknown | + + + Author + + + | Author | [facility] | | | and [place] | + + + | Organization | [facility] | | | and [place] [...] Team Providers + +------+ + | Care Conche Loader And Unloader Name | Role | Phone | + +------+ + | No, Physician | PCP | Unavailable | + +------+ + Encounter Details +--------+ + + + + | Date | Type | Department | Care Team | Description | +--------+ + + + + | 06/15/ | Hospital | [facility] | Rodri Ogden | Encounter for | | 2017 | Encounter | [address] | MD Keshav [address] | supervision of | | | | [place] | [place] | normal , | | | | [phone] | [address] | antepartum, | | | | [phone] | | unspecified | | | | [...]
--- OUTSIDE RECORDS SUMMARY | ~2019-04-14 | XMS | Encounter Summary ---
Demographics + + + | Address | [address] | | | [place] [address] | + + + | Home Phone | | + + + | Preferred Language | Unknown | + + + | Marital Status | Single | + + + | Pentecostalism Affiliation | Unknown | + + + | Race | Unknown | + + + | Ethnic Group | Unknown | + + + Author + + + | Author | [facility] | | | and [place] | + + + | Organization | [facility] | | | and [...] Team Providers + +------+ + | Care Molder Vacuum Name | Role | Phone | + +------+ + PCP | Unavailable | + +------+ + Encounter Details +--------+ + + + + | Date | Type | Department | Care Team | Description | +--------+ + + + + | 07/18/ | Hospital | [facility] | | | | 1999 | Encounter | [facility] | | | | | | CENTER [address] | | | | | | [place] | | | | | | [address] | | | | | | [phone] | | | +--------+ + + + [...]
--- OUTSIDE RECORDS SUMMARY | ~2019-04-14 | XMS | Encounter Summary ---
Demographics + + + | Address | [address] | | | [place] [address] | + + + | Home Phone | | + + + | Preferred Language | Unknown | + + + | Marital Status | Single | + + + | Caodaism Affiliation | Unknown | + + + | Race | Unknown | + + + | Ethnic Group | Unknown | + + + Author + + + | Author | [facility] | | | and [place] | + + + | Organization | [facility] | | | and [place] [...] Team Providers + +------+ + | Care Telecommunications Professional Name | Role | Phone | + [...] + | 11/22/ | Office | [facility] | Heidi Zimmerman | Urinary tract | | 2016 | Visit | [facility] [address] | DO Raymond Solomon | infection with | | | | [place], [place] | [place] | hematuria, site | | | | [phone] | [address] | unspecified (Primary | | | | [phone] | | Dx) | +--------+---------+ + + [...] documented in this encounter Progress Notes Heidi Zimmreman DO - 11/23/2015 9:59 AM PDTFormatting of this note might be diffe rent from the original. Subjective: Patient ID: Katlyn Duobis is a 30 y.o. female. HPI Comments: [...] 1.001 - 1.030 | | | | [place], | | | | | | [facility], [...] ST. | [address] | [place], [place] | [phone] | | [facility] | | [address] | | | - LABORATORY | | | | + + + + + documented in this encounter Visit Diagnoses + + | Diagnosis | + + | Urinary tract infection with hematuria, site unspecified - Primary | + + documented in this encounter
--- OUTSIDE RECORDS SUMMARY | ~2019-04-14 | XMS | Encounter Summary ---
Demographics + + + | Address | [address] | | | [place] [address] | + + + | Home Phone | | + + + | Preferred Language | Unknown | + + + | Marital Status | Single | + + + | Jainism Affiliation | Unknown | + + + | Race | Unknown | + + + | Ethnic Group | Unknown | + + + Author + + + | Author | [facility] | | | and [place] | + + + | Organization | [facility] | | | and [place] [...] Team Providers + +------+ + | Care Breakfast And Room Attendant Name | Role | Phone | + +------+ + | No, Physician | PCP | Unavailable | + +------+ + Reason for Visit + + + | Reason | Comments | + + + | Leg Pain | | + + + Encounter Details +--------+ + + + + | Date | Type | Department | Care Team | Description | +--------+ + + + + | 01/10/ | Emergency | [facility] | David Grover | Septic | | 2017 | | [facility] | Gagandeep Ward MD | thrombophlebitis | | | | CENTER [address] | [address] | (Primary Dx); | | | | [place], [place] | [place], [place] | Bilateral lower leg | | | | [phone] | [address] | cellulitis | | | | [phone] | | | | | | | Santiago Zaragoza MD | | | | | | [address] | | | | | | [place], [place] | | | | | | [address] | | | | | | | [...] documented in this encounter Discharge Instructions Instructions Santiago Zaragoza MD - 01/10/2017Return for fever, shortness, of breath or diff iculty breathing. Follow-up in medical clinic. AttachmentsThe following attachments cannot be sent through Care Everywhere.Thrombophlebiti s Superficial (German)documented in this encounter Medications at Time of Discharge + + + +---------+ + + | Medication | Sig | Dispensed | Refills | Start | End Date | | | | | | Date | | + + + +---------+ + + | ALBUTEROL IN | Inhale into the | | 0 | | | | | lungs. | | | | | + + + +---------+ + + | cephalexin | Take 1 capsule by | 40 | 0 | 01/11/20 | | | (KEFLEX) 500 mg | mouth 4 times daily | capsule | | 17 | 7 | | capsule | for 10 days. | | | | | + + + +---------+ + + | | Take 1 tablet by | 28 | 0 | 01/11/20 | | | sulfamethoxazole-tri | mouth 2 times daily | tablet | | 17 | 7 | | methoprim (BACTRIM | for 14 days. | | | | | | DS) 800-160 mg per | | | | | | | tablet | | | | | | + + + +---------+ + + documented as of this encounter Plan of Treatment Not on filedocumented as of this encounter Procedures + +--------+ + + + | Procedure Name | Priori | Date/Time | Associated Diagnosis | Comments | | | ty | | | | + +--------+ + + + | CBC WITH | STAT | 01/10/2017 | | Results for this | | DIFFERENTIAL | | 1:12 AM | | procedure are in the | | | | PDT | | results section. | + +--------+ + + + | COMPREHENSIVE | STAT | 01/10/2017 | | Results for this | | METABOLIC PANEL | | 1:12 AM | | procedure are in the | | | | PDT | | results section. | + +--------+ + + + | CULTURE, BLOOD | STAT | 01/10/2017 | | Results for this | | | | 12:49 AM | | procedure are in the | | | | PDT | | results section. | + +--------+ + + + | ECG 12 LEAD | STAT | 01/10/2017 | | Results for this | | | | 12:35 AM | | procedure are in the | | | | PDT | | results section. | + +--------+ + + + documented in this encounter Results Comprehensive Metabolic Panel (01/10/2017 1:12 AM PDT) + + + + + + | Component | Value | Ref Range | Performed | Pathologist | | | | | At | Signature | + + + + + + | Na | 137 | 136 - 149 | [facility] | | | | | mmol/L | [facility] | | | | | | MED[facility] | | | | | | CENTER - | | | | | | LABORATORY | | + + + + + + | K | 4.5 | 3.5 - 5.1 | [facility] | [...] + + + + | CO2 | 24 | 24 - 31 mmol/L | [facility] | | | | | | [facility] | | | | | | MEDICAL | | | | | | CENTER - | | | | | | LABORATORY | | + + + + + + | Anion Gap | 6 | 3 - 16 mmol/L | [facility] | | | | | | [facility] | | | | | | [facility] | | | | | | CENTER - | | | | | | LABORATORY | | + + + + + + | Glucose | 101 | 70 - 109 mg/dL | [facility] | | | | | | [facility] | | | | | | [facility] | | | | | | CENTER - | | | | | | LABORATORY | | + + + + + + | BUN | 11 | 7 - 18 mg/dL | [facility] | | | [facility] | | | [facility] | [facility] | | | | | | C[facility] - | | | | | | LABORATORY | | + + + + + + | Creatinine | 0.60 | 0.60 - 1.30 | [facility] | | | | | mg/dL | [facility] | | | | | | MEDICAL | | | | | | CENTER - | | | | | | LABORATORY | | + + + + + + | eGFR if not | >60Comment: GLOMERULAR | >=60 | [facility] | | | | FILTRATION | mL/min/1.73m2 | [facility] | | | CYMRAES | RATE,ESTIMATED | | MEDICAL | | | | mL/min/1.24v7Guaa than | | CENTER - | | [...] + + + + | Calcium | 9.0 | 8.3 - 10.5 | [facility] | | | | | mg/dL | [facility] | | | | | | MEDICAL | | | | | | CENTER - | | | | | | LABORATORY | | + + + + + + | Albumin | 4.0 | 3.2 - 5.0 g/dL | [facility] | | | | | | [facility] | | | | | | MEDICAL | | | | | | CENTER - | | | | | | LABORATORY | | + + + + + + | Bilirubin | 0.9Comment: This is an | 0.1 - 1.5 mg/dL | [facility] | | | Total | appended report. These | | [facility] | | | | results have been | | MEDICAL | | | | appended to a previously | | CENTER - | | | | preliminary verified | | LABORATORY | | | | report. | | | | + + + + + + | Total | 6.4 | 6.0 - 7.8 g/dL | [facility] | | | Protein | | | [facility] | | | | | | MEDICAL | | | | | | CENTER - | | | | | | LABORATORY | | + + + + + + | AST | 25Comment: This is an | 10 - 42 U/L | [facility] | | | | appended report. These | | [facility] | | | | results have been | | MEDICAL | | | | appended to a previously | | CENTER - | | | | preliminary verified | | LABORATORY | | | | report. | | | | + + + + + + | ALT | 19Comment: This is an | 6 - 45 U/L | [facility] | | | | appended report. These | | [facility] | | | | results have been | | MEDICAL | | | | appended to a previously | | CENTER - | | | | preliminary verified | | LABORATORY | | | | report. | | | | + + + + + + | Alkaline | 66Comment: This is an | 40 - 110 U/L | [facility] | | | Phosphatase | appended report. These | | [facility] | | | | results have been | | MEDICAL | | | | appended to a previously | | CENTER - | | | | preliminary verified | | LABORATORY | | | | report. | | | | + + + + + + | Globulin | 2.4 | 2.1 - 3.8 g/dL | [facility] | | | | | | [facility] | | | | | | MEDICAL | | | | | | CENTER - | | | | | | LABORATORY | | + + + + + + | Albumin/Octavia | 1.7 | 0.8 - 2.0 | [facility] | | | bulin Ratio | | | [facility] | | | | | | MEDICAL | | | | | | CENTER - | | | | | | LABORATORY | | + + + + + + | BUN/Creatin | 18.3 | | [facility] | | | ine Ratio | | | [facility] | | | | | | [...] + + | [facility] | [address] | [place] | [phone] | | [facility] | | [address] | | | - LABORATORY | | | | + + + + + CBC with Differential (01/10/2017 1:12 AM PDT) + + + + + + | Component | Value | Ref Range | Performed | Pathologist | | | | | At | Signature | + + + + + + | WBC | 14.8 (H) | 4.0 - 11.0 K/uL | [facility] | | | | | | [facility] | | | | | | MEDICAL | | | | | | CENTER - | | | | | | LABORATORY | | + + + + + + | RBC | 4.46 | 3.70 - 5.20 | [facility] | | | | | M/uL | [facility] | | | | | | MEDICAL | | | | | | CENTER - | | | | | | LABORATORY | | + + + + + + | Hemoglobin | 13.2 | 11.5 - 16.0 | [facility] | | | | | g/dL | [facility] | | | | | | MEDICAL | | | | | | CENTER - | | | | | | LABORATORY | | + + + + + + | Hematocrit | 38.3 | 34.0 - 47.0 % | [facility] | | | | | [facility] | | | | | | [facility] - | | | | | | LABORATORY | | + + + + + + | MCV | 85.9 | 83.0 - 101.0 fL | [facility] | | | | | | [facility] | | | [facility] | | MEDICAL | | | | | | CENTER - | | | | | | LABORATORY | | + + + + + + | MCH | 29.5 | 28.0 - 35.0 pg | [facility] | | | | | | [facility] | | | | | | MEDICAL | | | | | | CENTER - | | | | | | LABORATORY | | + + + + + + | MCHC | 34.4 | 32.0 - 36.0 | [facility] | | | | | g/dL | [facility] | | | | | | MEDICAL | | | | | | CENTER - | | | | | | LABORATORY | | + + + + + + | RDW-CV | 13.5 | <15.0 % | [facility] | | | | | | [facility] | | | | | | MEDICAL | | | | | | CENTER - | | | | | | LABORATORY | | + + + + + + | Platelet | 218 | 140 - 440 K/uL | [facility] [...] + + + + | % | 84.1 (H) | 45.0 - 82.0 % | [facility] | | | Neutrophils | | | [facility] | | | | | | MEDICAL | | | | | | CENTER - | | | | | | LABORATORY | | + + + + + + | % | 9.5 (L) | 20.0 - 45.0 % | [facility] | | | Lymphocytes | | | [facility] | | | | | | MEDICAL | | | | | | CENTER - | | | | | | LABORATORY | | + + + + + + | % Monocytes | 4.9 | 4.0 - 12.0 % | [facility] | | | | | | [facility] | | | | | | MEDICAL | | | | | | CENTER - | | | | | | LABORATORY | | + + + + + + | % | 0.9 | 0.0 - 5.0 % | [facility] | | | Eosinophils | | | [facility] | | | | | | MEDICAL | | | | | | CENTER - | | | | | | LABORATORY | | + + + + + + | % Basophils | 0.6 | 0.0 - 1.0 % | [facility] | | | | | | [facility] | | | | | | MEDICAL | | | | | | CENTER - | | | | | | LABORATORY | | + + + + + + | Absolute | 12.40 (H) | 1.80 - 8.50 | [facility] | | | Neutrophils | | K/uL | [facility] | | | | | | MEDICAL | | | | | | CENTER - | | | | | | LABORATORY | | + + + + + + | Absolute | 1.40 | 0.60 - 3.20 | [facility] | | | Lymphocytes | | K/uL | [facility] | | | | | | MEDICAL | | | | | | CENTER - | | | | | | LABORATORY | | + + + + + + | Absolute | 0.70 | 0.00 - 1.00 | [facility] | [...] | | Basophils | | K/uL | [facility] | [...] [address] | [place] | [phone] | | [facility] | | [address] | | | - LABORATORY | | | | + + + + + Culture, Blood (01/10/2017 12:49 AM PDT) + + + + + + | Component | Value | Ref Range | Performed | Pathologist | | | | | At | Signature | + + + + + + | Culture | No growth after 5 days | | [facility] | | | | incubation. | | [facility] | | | | | | MEDICAL | | | | | | CENTER - | | | | | | LABORATORY | | + + + + + + + + | Specimen | + + | Blood - Peripheral | | blood specimen | | (specimen) | + + + + + + + | Performing | Address | City/State/Zipcode | Phone Number | | Organization | | | | + + + + + | [facility] | [address] | [place] | [phone] | | [facility] | | [address] | | | - LABORATORY | | | | + + + + + ECG 12 lead (01/10/2017 12:35 AM PDT) + + + + + + | Component | Value | Ref Range | Performed | Pathologist | | | | | At | Signature | + + + + + + | VENTRICULAR | 97 | BPM | [facility] | | | RATE EKG | | | | | + + + + + + | ATRIAL RATE | 97 | BPM | [facility] | | + + + + + + | P-R | 128 | ms | [facility] | | | INTERVAL | | | | | + + + + + + | QRS | 74 | ms | [facility] | | | DURATION | | | | | + + + + + + | Q-T | 350 | ms | [facility] | | | INTERVAL | | | | | + + + + + + | Q-T | 444 | ms | [facility] | | | INTERVAL | | | | | | (CORRECTED) | | | | | + + + + + + | P WAVE AXIS | 85 | degrees | [facility] | | + + + + + + | QRS AXIS | 86 | degrees | [facility] | | + + + + + + | T AXIS | 87 | degrees | [facility] | | + + + + + + | INTERPRETAT | Normal sinus | | [facility] | | | ION TEXT | rhythmNormal ECGWhen | | | | | | compared with ECG of | | | | | | 11-JAN-2016 21:18,No | | | | | | significant change was | | | | | | foundConfirmed by | | | | | | MARTÍNEZ AVILA MD | | | | | | ([id number]) on 01/10/2017 | | | | | | 7:22:29 AM | | | | + + [...] + | Diagnosis | + + | Septic thrombophlebitis - Primary Phlebitis and thrombophlebitis of unspecified site | + + | Bilateral lower leg cellulitis Cellulitis and abscess of leg, except foot | + + documented in this encounter Administered Medications + +--------+ + +------+ + | Medication Order | MAR | Action | Dose | Rate | Site | | | Action | Date | | | | + +--------+ + +------+ + | cefTRIAXone (ROCEPHIN) 2,000 mg | Given | 01/11/20 | 2,000 mg | | Other | | in lidocaine IM syringe (350 | | 17 1:29 | | | (Comment | | mg/mL) 2,000 mg, Intramuscular, | | AM PDT | | | ) | | ONCE, 01/10/17 at 0120, For 1 | | | | | | | dose, Keep in refrigerator. For | | | | | | | IM use only., Indications: SKIN | | | | | | | AND SOFT TISSUE ABSCESS | | | | | | + +--------+ + +------+ + +---+---+ | | | +---+---+ + +-------+ + +---+---+ | sulfamethoxazole-trimethoprim | Given | 01/11/20 | 1 tablet | | | | (BACTRIM DS) 800-160 mg per | | 17 1:29 | | | | | tablet 1 tablet 1 tablet, Oral, | | AM PDT | | | | | ONCE, [place] 01/10/17 at 0105, For 1 | | | | | | | dose, Indications: Cellulitis | | | | | | + +-------+ + +---+---+ +---+---+ | | | +---+---+ documented in this encounter
--- OUTSIDE RECORDS SUMMARY | ~2019-04-14 | XMS | Encounter Summary ---
Demographics + + + | Address | [address] | | | [place] [address] | + + + | Home Phone | | + + + | Preferred Language | Unknown | + + + | Marital Status | Single | + + + | Yarsanism Affiliation | Unknown | + + + | Race | Unknown | + + + | Ethnic Group | Unknown | + + + Author + + + | Author | [facility] | | | and [place] | + + + | Organization | [facility] | | | and [...] Team Providers + +------+ + | Care Operator [employer] Name | Role | Phone | + +------+ + PCP | Unavailable | + +------+ + Encounter Details +--------+ + + + + | Date | Type | Department | Care Team | Description | +--------+ + + + + | 09/29/ | Hospital | [facility] | Dominic Mitchell | | | 2011 | Encounter | [facility] OP | I, MD, FACS [address] | | | | | [address] | [place] | | | | | [place], [place] | [place] [address] | | | | | [address] | [phone] | | | | | [phone] | | | +--------+ + + + [...] + + + +---------+ + + | Vit-Fe | Take 14-0.4 mg by | | 0 | 09/29/19 | | | Fumarate-FA | mouth Daily. | | | 12 | 5 | | ( COMPLETE) | | | | | | | 14-0.4 MG TABS | | | | | | + + + +---------+ + + documented as of this encounter Plan of Treatment Not on filedocumented as of this encounter Procedures + +--------+ + + + | Procedure Name | Priori | Date/Time | Associated Diagnosis | Comments | | | ty | | | | + +--------+ + + + | US OB < 14 WEEKS | | 09/30/2011 | | Results for this | | EACH ADDITIONAL | | 5:55 AM | | procedure are in the | | GESTATION | | PDT | | results section. | + +--------+ + + + documented in this encounter Results US OB < 14 Weeks Each Addition Gestation (09/30/2011 5:55 AM PDT) + + | Specimen | + + | | + + + + + | Narrative | Performed At | + + + | [facility] Diagnostic Imaging Department | [facility] | | [address] [facility] | [facility] | | FIRST TRIMESTER OB ULTRASOUND | DIAG IMG | | TRANSABDOMINAL AND TRANSVAGINAL, 09/30/2011, 1530 HOURS CLINICAL | | | HISTORY: POSTOP LAPAROSCOPIC CHOLECYSTECTOMY WITH SUDDEN ONSET OF | | | VAGINAL BLEEDING. FINDINGS: Transabdominal and transvaginal | | | examination demonstrates a normal appearing gestational sac. At the | | | periphery of the gestational sac, there is a 10 x 20 mm fluid | | | collection representing subchorionic bleed. There is no active | | | bleeding into the collection on color flow. Imaging of the fetus | | | demonstrates a yolk sac and cardiac activity with measured | | | heart rate at 167 beats per minute. The cervix appears closed. | | | The fetus measures 11 weeks 5 days gestational age by sonographic | | | criteria. This is expected for the clinical dating. Right and left | | | ovaries are unremarkable. There is trace free fluid in the | | | cul-de-sac status post cholecystectomy. IMPRESSION: 1. LIVE | | | FIRST TRIMESTER FETUS ESTIMATED 11 WEEKS 5 DAYS GESTATIONAL AGE. | | | 2. SUBCHORIONIC BLEED. COMMENT: FINDINGS REPORTED TO DR. ACUNA, | | | ATTENDING VETERINARIAN ASSISTANT. <Electronically Signed by Jeremiah Schuster, | | | > 10/03/11 0844 | | + + + + + | Procedure Note | + + | Nik, Rad Conversion - 07/05/2013 5:16 PM [facility] | | Diagnostic Imaging Department | | [address] [facility] | | | | | | | | FIRST TRIMESTER OB ULTRASOUND TRANSABDOMINAL AND TRANSVAGINAL, 09/30/2011, 1530 | | HOURS | | | | CLINICAL HISTORY: POSTOP LAPAROSCOPIC CHOLECYSTECTOMY WITH SUDDEN ONSET OF | | VAGINAL BLEEDING. | | | | FINDINGS: Transabdominal and transvaginal examination demonstrates a normal | | appearing gestational sac. At the periphery of the gestational sac, there is a | | 10 x 20 mm fluid collection representing subchorionic bleed. There is no active | | bleeding into the collection on color flow. Imaging of the fetus demonstrates a | | yolk sac and cardiac activity with measured heart rate at 167 beats | | per minute. The cervix appears closed. The fetus measures 11 weeks 5 days | | gestational age by sonographic criteria. This is expected for the clinical | | dating. Right and left ovaries are unremarkable. There is trace free fluid in | | the cul-de-sac status post cholecystectomy. | | | | IMPRESSION: | | 1. LIVE FIRST TRIMESTER FETUS ESTIMATED 11 WEEKS 5 DAYS GESTATIONAL AGE. | | | | 2. SUBCHORIONIC BLEED. | | | | COMMENT: FINDINGS REPORTED TO DR. ACUNA, ATTENDING VETERINARIAN ASSISTANT. | | <Electronically Signed by Jeremiah Schuster MD> 10/03/11 0844 | + + + +---------+ + + | Performing | Address | City/State/Zipcode | Phone Number | | Organization | | | | + +---------+ + + | [place] | | | | | [place] | | | | + +---------+ + + documented in this encounter Visit Diagnoses Not on filedocumented in this encounter"
--- OUTSIDE RECORDS SUMMARY | ~2019-04-14 | XMS | Encounter Summary ---
Demographics + + + | Address | [address] | | | [place] [address] | + + + | Home Phone | | + + + | Preferred Language | Unknown | + + + | Marital Status | Single | + + + | Sabianism Affiliation | Unknown | + + + | Race | Unknown | + + + | Ethnic Group | Unknown | + + + Author + + + | Author | [facility] | | | and [place] | + + + | Organization | [facility] | [...] Team Providers + +------+ + | Care Piece Presser Name | Role | Phone | + +------+ + | No, Physician | PCP | Unavailable | + +------+ + Reason for Visit + + + | Reason | Comments | + + + | Abdominal Pain | epigastric | + + + Encounter Details +--------+ + + + + | Date | Type | Department | Care Team | Description | +--------+ + + + + | 10/08/ | Emergency | [facility] | Quique, | Acute gastritis | | 2015 | | [facility] | David Thomas MD [address] | without hemorrhage | | | | CENTER [address] | [address] | (Primary Dx); | | | | [place] | [place] [address] | Vomiting | | | | [phone] | [phone] | | | | | [phone] | | | +--------+ + + + + Social History + +-------+ +--------+------+ | Tobacco Use | Types | Packs/Day | Years | Date | | | | | Used | | + +-------+ +--------+------+ | Current Every Day | | 0.5 | | | | Smoker | | | | | + +-------+ +--------+------+ + + +---------+ + | Alcohol Use | Drinks/Week | oz/Week | Comments | + + +---------+ + | Yes | | | occ | + + +---------+ + + + [...] + + + | Blood Pressure | 128/77 | 10/08/2014 8:23 AM | | | | | PDT | | + + + + + | Pulse | 107 | 10/08/2014 8:23 AM | | | | | PDT | | + + + + + | Temperature | 35.9 C (96.6 F) | 10/08/2014 8:23 AM | | | | | PDT | | + + + + + | Respiratory Rate | 16 | 10/08/2014 8:23 AM | | | | | PDT | | + + + + + | Oxygen Saturation | 100% | 10/08/2014 8:23 AM | | | | | PDT | | + + + + + | Inhaled Oxygen | - | - | | | Concentration | | | | + + + + + | Weight | 54.4 kg (120 lb) | 10/08/2014 8:23 AM | | | | | PDT | | + + + + + | Height | 157.5 cm (5' 2.01") | 10/08/2014 8:23 AM | | | | | PDT | | + + + + + | Body Mass Index | 21.94 | 10/08/2014 8:23 AM | | | | | PDT | | + + + + + documented in this encounter Discharge Instructions Instructions David Lei MD - 10/08/2014Formatting of this note might be differe nt from the original. Zofran for nausea. Start 2 week course of omeprazole and Carafate to help with the stomach pain and burning. I recommend you establish care with a primary provider, below is a list of providers chaitanya ospina accepting new patients Primary Care Accepting New Patients 01/07/2014 Dr. Chan Giang Internal Medicine Scheduling Special interest in gastro-intestinal diseases and dermatology. Dr. David Baker Family Medicine Scheduling Special interest in geriatrics. Dr. Patrick Mark Family Medicine Scheduling Dr. Ariel Mcclain Family Medicine Obstetrics Scheduling Full scope family medicine- including obstetrics, pediatrics and adult medicine. FIORDALIZA Olivas Family Medicine Scheduling Special interest in OB Care, Pediatrics [address] [place] [address] documented in this encounter Medications at Time of Discharge + + + +---------+ + + | Medication | Sig | Dispensed | Refills | Start | End Date | | | | | | Date | | + + + +---------+ + + | omeprazole | Take 1 capsule by | 28 | 0 | 10/09/19 | | | (PRILOSEC) 20 mg | mouth 2 times daily | capsule | | 15 | 5 | | capsule | for 14 days. | | | | | + + + +---------+ + + | ondansetron | Take 1 tablet by | 15 | 0 | 10/09/19 | | | (ZOFRAN ODT) 4 mg | mouth every 6 hours | tablet | | 15 | 6 | | disintegrating | as needed for | | | | | | tablet | Nausea. | | | | | + + + +---------+ + + | sucralfate | Take 1 tablet by | 56 | 0 | 10/09/19 | | | (CARAFATE) 1 g | mouth 4 times daily | tablet | | 15 | 5 | | tablet | for 14 days. | | | | | + + + +---------+ + + documented as of this encounter Plan of Treatment Not on filedocumented as of this encounter Visit Diagnoses + + | Diagnosis | + + | Acute gastritis without hemorrhage - Primary | + + | Vomiting Vomiting alone | + + documented in this encounter Administered Medications + +--------+ +--------+------+------+ | Medication Order | MAR | Action | Dose | Rate | Site | | | Action | Date | | | | + +--------+ +--------+------+------+ | aluminum & magnesium | Given | 10/09/19 | 30 mLs | | | | hydroxide-simethicone (MAALOX | | 15 8:49 | | | | | REGULAR STRENGTH) 200-200-20 mg/5 | | AM PDT | | | | | mL suspension 30 mL 30 mL, | | | | | | | Oral, ONCE, Mon10/08/14 at 0900, | | | | | | | For 1 dose, Mix lidocaine and | | | | | | | Maalox. Shake well., | | | | | | + +--------+ +--------+------+------+ +---+---+ | | | +---+---+ + +-------+ +--------+---+---+ | lidocaine (XYLOCAINE) 2% | Given | 10/09/19 | 10 mLs | | | | viscous solution 10 mL 10 mL, | | 15 8:49 | | | | | Oral, ONCE, Mon10/08/14 at 0900, | | AM PDT | | | | | For 1 dose, Mix lidocaine and | | | | | | | MAALOX. Shake well., | | | | | | + +-------+ +--------+---+---+ +---+---+ | | | +---+---+ + +-------+ +------+---+---+ | ondansetron (ZOFRAN ODT) | Given | 10/09/19 | 4 mg | | | | disintegrating tablet 4-8 mg 4-8 | | 15 8:49 | | | | | mg, Oral, ONCE, 10/08/14 at | | AM PDT | | | | | 0900, For 1 dose | | | | | | + +-------+ +------+---+---+ +---+---+ | | | +---+---+ documented in this encounter
--- OUTSIDE RECORDS SUMMARY | ~2019-04-14 | XMS | Encounter Summary ---
Demographics + + + | Address | [address] | | | [place] [address] | + + + | Home Phone | | + + + | Preferred Language | Unknown | + + + | Marital Status | Single | + + + | Zoroastrian Affiliation | Unknown | + + + | Race | Unknown | + + + | Ethnic Group | Unknown | + + + Author + + + | Author | [facility] | | | and [place] | + + + | Organization | [facility] | | | and [...] Team Providers + +------+ + | Care Volunteer Services Assistant Name | Role | Phone | + +------+ + PCP | Unavailable | + +------+ + Encounter Details +--------+ + + + + | Date | Type | Department | Care Team | Description | +--------+ + + + + | 09/29/ | Hospital | [facility] | Dominic Mitchell | | | 2011 | Encounter | [facility] | I, MD, FACS [address] | | | | | [address] | [place] | | | | | [place], [place] | [place] [address] | | | | | [address] | [phone] | | | | | [phone] | | | +--------+ + + + [...] Performed At | + + + | [facility] Diagnostic Imaging Department | [facility] | | [address] | [facility] | | FIRST TRIMESTER OB ULTRASOUND [...] TO DR. ACUNA, | | | ATTENDING AIRCRAFT SYSTEMS REPAIRER. <Electronically Signed by Jeremiah Schuster, | | | > 10/03/11 0844 | | + + + + + | Procedure Note | + + | Nik, Rad Conversion - 07/05/2013 5:16 PM [facility] | | Diagnostic Imaging Department | | [address] | | | | | | | [...] COMMENT: FINDINGS REPORTED TO DR. ACUNA, ATTENDING AIRCRAFT SYSTEMS REPAIRER. | | <Electronically Signed by Jeremiah Schuster [...]
--- OUTSIDE RECORDS SUMMARY | ~2019-04-14 | XMS | Encounter Summary ---
Demographics + + + | Address | [address] | | | [place] [address] | + + + | Home Phone | | + + + | Preferred Language | Unknown | + + + | Marital Status | Single | + + + | Hinduism Affiliation | Unknown | + + + | Race | Unknown | + + + | Ethnic Group | Unknown | + + + Author + + + | Author | [facility] | | | and [place] | + + + | Organization | [facility] | | | and [place] | [...] Team Providers + +------+ + | Care Turning Lathe Tender Name | Role | Phone | + +------+ + | No, Physician | PCP | Unavailable | + +------+ + Reason for Visit + + + | Reason | Comments | + + + | Panic Attack | | + + + Encounter Details +--------+ + + + + | Date | Type | Department | Care Team | Description | +--------+ + + + + | 10/12/ | Emergency | [facility] | Patrick Baeza MD | Panic attack | | 2017 | | [facility] | [address] | (Primary Dx) | | | | CENTER [address] | [place], [place] | | | | | [place], [place] | [address] | | | | | [address] | | | | | | [phone] | | | +--------+ + + + [...] + + + | Blood Pressure | 121/98 | 10/12/2016 12:26 PM | | | | | PDT | | + + + + + | Pulse | 121 | 10/12/2016 12:26 PM | | | | | PDT | | + + + + + | Temperature | 36.1 C (97 F) | 10/12/2016 12:26 PM | | | | | PDT | | + + + + + | Respiratory Rate | 20 | 10/12/2016 12:26 PM | | | | | PDT | | + + + + + | Oxygen Saturation | 97% | 10/12/2016 12:26 PM | | | | | PDT | | + + + + + | Inhaled Oxygen | - | - | | | Concentration | | | | + + + + + | Weight | 54.4 kg (120 lb) | 10/12/2016 12:26 PM | | | | | PDT | | + + + + + | Height | 157.5 cm (5' 2") | 10/12/2016 12:26 PM | | | | | PDT | | + + + + + | Body Mass Index | 21.95 | 10/12/2016 12:26 PM | | | | | PDT | | + + + + + documented in this encounter Discharge Instructions Instructions Patrick Baeza MD - 10/12/2016Makeiko use medication if needed for recurrent iva c Rest and fluids Return for worsening symptoms, not improving, other new complaints AttachmentsThe following attachments cannot be sent through Care Everywhere.PANIC ATTACK (E MINDY)documented in this encounter Medications at Time of [...] + + + +---------+ + + | ibuprofen | Take 1 tablet by | 30 | 1 | 08/03/19 | | | (ADVIL,MOTRIN) 600 | mouth every 6 hours | tablet | | 17 | 7 | | MG tablet | as needed for Pain. | | | | | + + + +---------+ + + | LORazepam (ATIVAN) | Take 1 tablet by | 12 | 0 | 10/13/19 | | | 1 mg tablet | mouth every 8 hours | tablet | | 17 | 7 | | | as needed for | | | | | | | Anxiety. | | | | | + + + +---------+ + + documented as of this encounter Plan of Treatment Not on filedocumented as of this encounter Visit Diagnoses + + | Diagnosis | + + | Panic attack - Primary Panic disorder without agoraphobia | + + documented in this encounter Administered Medications + +--------+ +------+------+ + | Medication Order | MAR | Action | Dose | Rate | Site | | | Action | Date | | | | + +--------+ +------+------+ + | LORazepam (ATIVAN) injection 2 | Given | 10/13/19 | 2 mg | | Glut-Rig | | mg 2 mg, Intramuscular, ONCE, | | 17 12:29 | | | ht | | 10/12/16 at 1230, For 1 dose | | PM PDT | | | | + +--------+ +------+------+ + +---+---+ | | | +---+---+ documented in this encounter
--- OUTSIDE RECORDS SUMMARY | ~2019-04-14 | XMS | Encounter Summary ---
Demographics + + + | Address | [address] | | | [place] [address] | + + + | Home Phone | | + + + | Preferred Language | Unknown | + + + | Marital Status | Single | + + + | Protestant Affiliation | Unknown | + + + | Race | Unknown | + + + | Ethnic Group | Unknown | + + + Author + + + | Author | [facility] | | | and [place] | + + + | Organization | [facility] | | | and [place] | [...] Team Providers + +------+ + | Care Mdm Sr Name | Role | Phone | + +------+ + | No, Physician | PCP | Unavailable | + +------+ + Encounter Details +--------+ + + + + | Date | Type | Department | Care Team | Description | +--------+ + + + + | 07/23/ | [facility] | [facility] | Rodri Ogden | | | 2017 | Encounter | [facility] | MD Keshav [address] [facility] | | | | | [address] | [place] | | | | | [place] | [address] | | | | | [address] | | | | | | [phone] | | | +--------+ + + + [...] + + documented as of this encounter Discharge Instructions Instructions Paz Son RN - 07/23/2016Discharge Education for the Undelivered Alfredo sanchez You can use the following list as a guide to help you know when to call your provider or re turn to the hospital. Labor Contractions (labor pains) every 5 minutes or less, lasting 60 seconds or more Contractions become stronger Bag of smith broken or leaking fluid from the vagina Labor (more than 3 weeks before your due date) Contractions (labor pains) that occur more than 4 times per hour (every 15 minutes), la sting 30 seconds or more, for 2 hours Backache or pelvic pressure Bag of smith broken or leaking fluid from the vagina Movement Counting Starting at 7 months (28 weeks) Decreased (less than 10 movements in 2 hours) Other Reasons to Call Constant headache Changes in vision Sudden increase in swelling, especially rapid weight gain chiefly in your face and/ or hands Constant abdominal (belly) pain Bright red vaginal bleeding or passing enough clots to need a pad Temperature over 100.4 (38 C) documented in this encounter Medications at Time [...] | + +--------+ + + + | RUPTURE OF MEMBRANES | Routin | 07/23/2016 | | Results for this | | | e | 6:47 AM | | procedure are in the | | | | PST | | results section. | + +--------+ + + + documented in this encounter Results Rupture of Membranes (07/23/2016 6:47 AM PST) + + + + + + | Component | Value | Ref Range | Performed | Pathologist | | | | | At | Signature | + + + + + + | Amnisure, | Negative | Negative | [facility] | | [facility] | [facility] - | | | | | | LABORATORY | | + + + + + + + + | Specimen | + + | Body Fluid - | | Tracheal syrinx | | (body structure) | + + + + + + + | Performing | Address | City/State/Zipcode | Phone Number | | Organization | | | | + + + + + | [facility] | [address] | [place], [place] | [phone] | | [facility] | | [address] | | | - LABORATORY | | | | + + + + + documented in this encounter Visit Diagnoses Not on filedocumented in this encounter"
--- OUTSIDE RECORDS SUMMARY | ~2019-04-14 | XMS | Encounter Summary ---
Demographics + + + | Address | [address] | | | [place] [address] | + + + | Home Phone | | + + + | Preferred Language | Unknown | + + + | Marital Status | Single | + + + | Episcopal Affiliation | Unknown | + + + | Race | Unknown | + + + | Ethnic Group | Unknown | + + + Author + + + | Author | [facility] | | | and [place] | + + + | Organization | [facility] | | | and [...] Team Providers + +------+ + | Care Test Operator Name | Role | Phone | + +------+ + | No, Physician | PCP | Unavailable | + +------+ + Reason for Referral Evaluate & Treat (Routine) +--------+ + + + + + | Status | Reason | Specialty | Diagnoses / | Referred By | Referred To | | | | | Procedures | Contact | Contact | +--------+ + + + + + | Closed | Specialty | | Diagnoses | | | | | Services | Services / | 36 weeks | Todd, | | | | Required | | gestation of | Angelina Padron, | | | | | and | | DO [address] | | | | | | [address] | | | | | | | [place], | | | | | | | [place] [address] | | | | | | | Phone: | | | | | | | [phone] | | | | | | | Fax: | | | | | | | [phone] | | +--------+ + + + + + Evaluate & Treat (Routine) +--------+ + + + + + | Status | Reason | Specialty | Diagnoses / | Referred By | Referred To | | | | | Procedures | Contact | Contact | +--------+ + + + + + | Closed | Specialty | | Diagnoses | | | | | Services | and | 36 weeks | Todd, | | | | Required | | gestation of | Angelina Padron | | | | | | | DO [address] | | | | | | [address] | | | | | | | [place], | | | | | | | [place] [address] | | | | | | | Phone: | | | | | | | [phone] | | | | | | | Fax: | | | | | | | [phone] | | +--------+ + + + + + Reason for Visit + + + | Reason | Comments | + + + | Laboring | | + + + Auth/Cert +--------+--------+ + + + + | Status | Reason | Specialty | Diagnoses / | Referred By | Referred To | | | | | Procedures | Contact | Contact | +--------+--------+ + + + + | | | | | | | +--------+--------+ + + + + Encounter Details +--------+ + + + + | Date | Type | Department | Care Team | Description | +--------+ + + + + | 07/31/ | Hospital | [facility] | Rodri Ogden | 36 weeks gestation | | 2017 - | Encounter | [facility] | MD Keshav [address] | of | | | | [address] | [place] | (Primary Dx) | | 08/02/ | | [place] | [id number] | | | 2016 | | [address] | | | | | | [phone] | Angelina Brooks | | | | | | DO Nereida [address] | | | | | | [address] [place] | | | | | | [phone] | | | | | | | [...] + + + | Blood Pressure | 93/62 | 08/02/2016 7:46 AM | | | | | PST | | + + + + + | Pulse | 90 | 08/02/2016 7:46 AM | | | | | PST | | + + + + + | Temperature | 36.3 C (97.3 F) | 08/02/2016 7:46 AM | | | | | PST | | + + + + + | Respiratory Rate | 15 | 08/02/2016 7:46 AM | | | | | PST | | + + + + + | Oxygen Saturation | 98% | 07/31/2016 9:45 PM | | | | | PST | | + + + + + | Inhaled Oxygen | - | - | | | Concentration | | | | + + + + + | Weight | 62.6 kg (138 lb) | 07/31/2016 7:06 PM | | | | | PST | | + + + + + | Height | 157.5 cm (5' 2") | 07/31/2016 7:06 PM | | | | | PST | | + + + + + | Body Mass Index | 25.24 | 07/31/2016 7:06 PM | | | | | PST | | + + + + + documented in this encounter Discharge Summaries Rodri Ogden MD - 08/02/2016 7:37 AM PST DISCHARGE SUMMARY-OBSTETRICS Date of Admission: 07/31/2016 Date of Discharge: 08/02/2016 ATTENDING CLINICIAN: Rodri Ogden MD PRIMARY HEAD STILL OPERATOR: No Physician on file HISTORY OF PRESENT ILLNESS 30 y.o. 36w6d presented in labor. HOSPITAL COURSE: Katlyn Dubois is a 30 y.o.-year-old, now female (Estimated Date of Delivery: 08/22/16) who had a delivered by Vaginal, Spontaneous Delivery . At 07/31/20162006 ,Katlyn bore a living female 2.734 kg (6 lb 0.4 oz) infant, . scores were 8 /8 at one an d five minutes respectively. Estimated Blood loss was normal. Her labor course was uncomplicated. Her course was unremarkable. Pain was well controlled and she was ambulating we ll without any difficulty. She had normal bowel an urinary function. Her vital signs were stable and afebrile. Nursing was going well. She was discharged home in stable condition . She was given written post operative instructions in regards to her activity level and jameson itations. DISPOSITION: home CONDITION UPON DISCHARGE: stable DISCHARGE MEDICATIONS: Discharge Medications New Medications Details ibuprofen 600 MG tablet Take 1 tablet by mouth every 6 hours as needed for Pain. aka: ADVIL,MOTRIN Unchanged Medications Details ALBUTEROL IN Inhale into the lungs. There is no immunization history for the selected administration types on file for this pat ient. FOLLOWUP: 6 weeks PRECAUTIONS: Pelvic rest for 6 weeks DIET: Regular Electronically Signed by: Rodri Ogden MD 08/02/2016 7:37 documented in this encounter Medications at Time [...] + + documented as of this encounter Progress Notes Lakeshia Jones RN - 08/02/2016 6:30 PM PSTDischarged to home in stable condition with sukhdeep livingston Rodri Marvin M D - 08/02/2016 7:35 AM PSTObstetrics Progress Note Subjective: Patient doing well without any concerns Pain: Well controlled Bottlefeeding. No breast pain. Lochia: Minimal Ambulating: Without any difficulty or dizziness Patient requests discharge home Maternal VS's: BP: 97/62 mmHg Pulse: 68 Temp: 36 C (96.8 F) Exam: General: No acute distress, baby at bedside Abdomen: Soft, non-tender, non-distended Fundus: Firm, below the umbilicus Extremities: No calf tenderness, appropriate edema AssesmentPlan: Day #2 s/p normal spontaneous vaginal delivery recovering well stable for discha rge -d/c home with instructions and follow-up scheduled Electronically Signed by: Rodri Ogden MD 08/02/2016 7:35 Dorothy Sy RN - 08/01/2016 9:43 AM PSTP T reports inadequate milk volume with two other babies, and has decided to bottle feed only. She bottle fed her last nb and reports she only had 1 day of breast discomfort. Encouraged to stay away from breast stimulation and to wear a tight fitting sports type bra for support . Rodri Marvin MD - 08/01/2016 8:46 AM PSTObstetrics Progress Note Subjective: Patient doing well without any concerns Pain: Well controlled Bottlefeeding Lochia: Minimal Ambulating: Without any difficulty or dizziness Maternal VS's: BP: 104/67 mmHg Pulse: 90 Temp: 36.6 C (97.9 F) Exam: General: No acute distress, baby at bedside Abdomen: Soft, non-tender, non-distended Fundus: Firm, below the umbilicus Extremities: No calf tenderness, appropriate edema AssesmentPlan: Day #1 s/p normal spontaneous vaginal delivery recovering well GBS+ Anemia -add Fe -Routine care. -d/c home likely for tomorrow Electronically Signed by: Rodri Ogden MD 08/01/2016 8:46 ontos, Concha Ervin RN - 07/31/2016 7:53 PM PSTI V has been attempted by at least 3 RN's; no success, pt needs abx, but is progressing fast t hrough labor. aibJoy RN - 07/31/2016 7:03 PM PSTPeripheral IV attempts x3 unsuccessful by 2 RN's. [facility] shift charge will attempt. 7:0 4 PM PSTLaib, Dorothy Hansen RN - 07/31/2016 6:38 PM PSTPt presents to OB with complaints of p ainful contractions that started at 1500. Reports bloody show. No leaking of fluid. States s he delivers too rapidly to get epidural. SVE . notified. Admit orders re c'd. documented in th is encounter Plan of Treatment + + +--------+ + + | Name | Type | Priori | Associated Diagnoses | Order Schedule | | | | ty | | | + + +--------+ + + | Amb referral to | Outpatient | Routin | 36 weeks gestation | 1 Occurrences | | | Referral | e | of | starting 08/02/2016 | | | | | | until 07/31/2017 | + + +--------+ + + | Ambulatory referral | Outpatient | Routin | 36 weeks gestation | 1 Occurrences | | to | Referral | e | of | starting 08/02/2016 | | | | | | until 07/31/2017 | + + +--------+ + + documented as of this encounter Procedures + +--------+ + + + | Procedure Name | Priori | Date/Time | Associated Diagnosis | Comments | | | ty | | | | + +--------+ + + + | CBC NO DIFFERENTIAL | Routin | 08/01/2016 | | Results for this | | | e | 6:17 AM | | procedure are in the | | | | PST | | results section. | + +--------+ + + + | DRUGS OF ABUSE, | Routin | 07/31/2016 | | Results for this | | SCREEN, URINE | e | 10:44 PM | | procedure are in the | | | | PST | | results section. | + +--------+ + + + | TYPE AND SCREEN | Routin | 07/31/2016 | | Results for this | | | e | 7:47 PM | | procedure are in the | | | | PST | | results section. | + +--------+ + + + | CBC NO DIFFERENTIAL | STAT | 07/31/2016 | | Results for this | | | | 7:10 PM | | procedure are in the | | | | PST | | results section. | + +--------+ + + + | CULTURE, STREP GROUP | Routin | 07/20/2016 | | Results for this | | B | e | | | procedure are in the | | | | | | results section. | + +--------+ + + + | RUBELLA AB, IGG | Routin | 07/04/2016 | | Results for this | | | e | | | procedure are in the | | | | | | results section. | + +--------+ + + + | RAPID PLASMA REAGIN, | Routin | 07/04/2016 | | Results for this | | QUAL | e | | | procedure are in the | | | | | | results section. | + +--------+ + + + | HIV 1 AND 2 AB, | Routin | 07/04/2016 | | Results for this | | REFLEX | e | | | procedure are in the | | | | | | results section. | + +--------+ + + + | HEPATITIS B SURFACE | Routin | 07/04/2016 | | Results for this | | AG | e | | | procedure are in the | | | | | | results section. | + +--------+ + + + | ANTIBODY SCREEN | Routin | 07/04/2016 | | Results for this | | | e | | | procedure are in the | | | | | | results section. | + +--------+ + + + | C. TRACHOMATIS AND | Routin | 04/25/2016 | | Results for this | | N. GONORRHOEAE AND | e | | | procedure are in the | | T. VAGINALIS, NAAT | | | | results section. | + +--------+ + + + | C. TRACHOMATIS AND | Routin | 04/25/2016 | | Results for this | | N. GONORRHOEAE, NAAT | e | | | procedure are in the | | | | | | results section. | + +--------+ + + + documented in this encounter Results CBC no Differential (08/01/2016 6:17 AM PST) + + + + + + | Component | Value | Ref Range | Performed | Pathologist | | | | | At | Signature | + + + + + + | WBC | 13.4 (H) | 4.0 - 11.0 K/uL | [facility] | | | | | [facility] | | | | | | [facility] | | | | | [facility] - | | | | | | LABORATORY | | + + + + + + | RBC | 3.80 | 3.70 - 5.20 | [facility] | | | | | M/uL | [facility] | | | | | | [facility] | | | | | | CENTER - | | | | | | LABORATORY | | + + + + + + | Hemoglobin | 9.4 (L) | 11.5 - 16.0 | [facility] | | | | | g/dL | [facility] | | | | | | [facility] | | | | | | CENTER - | | | | | | LABORATORY | | + + + + + + | Hematocrit | 29.0 (L) | 34.0 - 47.0 % | [facility] | | | | | | [facility] | | | | | | [facility] | | | | | | C[facility] - | | | | | | LABORATORY | | + + + + + + | MCV | 76.4 (L) | 83.0 - 101.0 fL | [facility] | | | | | | [facility] | | | | | | [facility] | | | | | | [facility] - | | | | | | LABORATORY | | + + + + + + | MCH | 24.6 (L) | 28.0 - 35.0 pg | [facility] | | | | | | [facility] | | | | | | MEDICAL | | | | | | CENTER - | | | | | | LABORATORY | | + + + + + + | MCHC | 32.3 | 32.0 - 36.0 | [facility] | | | | | g/dL | [facility] | | | | | | [facility]ICAL | | | | | | CENTER - | | | | | | LABORATORY | | + + + + + + | RDW-CV | 16.5 (H) | <15.0 % | [facility] | | | | | | [facility] | | | | | | [facility]ICAL | | | | | | CENTER - | | | | | | LABORATORY | | + + + + + + | Platelet | 228 | 140 - 440 K/uL | [facility] | | | Count | | | [facility] | | | | | | MEDICAL | | | | | | CENTER - | | | | | | LABORATORY | | + + + + + + | MPV | 7.7 | fL | [facility] | | | [...] ST. | [address] | [place] | [phone] | | [facility] | | [address] | | | - LABORATORY | | | | + + + + + Drugs of Abuse, Screen, Urine (07/31/2016 10:44 PM PST) + + + + + + | Component | Value | Ref Range | Performed | Pathologist | | | | | At | Signature | + + + + + + | Amphetamine | Negative | Negative | [facility] | | | Screen, | | | [facility] | | | Urine | | | MEDICAL | | | | | | CENTER - | | | | | | LABORATORY | | + + + + + + | Barbiturate | Negative | Negative | [facility] | | | s Screen, | | | [facility] | | | Urine | | | MEDICAL | | | | | | CENTER - | | | | | | LABORATORY | | + + + + + + | Benzodiazep | Negative | Negative | [facility] | | | lily | | | [facility] | | | Screen, | | | MEDICAL | | | Urine | | | CENTER - | | | | | | LABORATORY | | + + + + + + | Cannabinoid | Negative | Negative | [facility] | | | s Screen, | | | [facility] | | | Urine | | | MEDICAL | | | | | | CENTER - | | | | | | LABORATORY | | + + + + + + | Cocaine | Negative | Negative | [facility] | | | Screen, | | | [facility] | | | Urine | | | MEDICAL | | | | | | CENTER - | | | | | | LABORATORY | | + + + + + + | Methadone | Negative | Negative | [facility] | | | Screen, | | | [facility] | | | Urine | | | MEDICAL | | | | | | CENTER - | | | | | | LABORATORY | | + + + + + + | Opiates | Negative | Negative | [facility] | | | Screen, | | | [facility] | | | Urine | | | MEDICAL | | | | | | CENTER - | | | | | | LABORATORY | | + + + + + + + + | Specimen | + + | Urine | + + + + + + + | Performing | Address | City/State/Zipcode | Phone Number | | Organization | | | | + + + + + | [facility] | [address] | [place] | [phone] | | [facility] | | [address] | | | - LABORATORY | | | | + + + + + Type and Screen (07/31/2016 7:47 PM PST) + + + + + + | Component | Value | Ref Range | Performed | Pathologist | | | | | At | Signature | + + + + + + | ABO | O | | [facility] | | | | | | [facility] | | | | | | MED[facility] | | | | | | CENTER - | | | | | | BLOOD BANK | | + + + + + + | Rh Type | Positive | | [facility] | | | | | | [facility] | | | | | | MEDICAL | | | | | | CENTER - | | | | | | BLOOD BANK | | + + + + + + | Antibody | Negative | | [facility] | | | Screen | | | [facility] | | | | | | MEDICAL | | | | | | CENTER - | | | | | | BLOOD BANK | | + + + + + + + + | Specimen | + + | Blood specimen | | (specimen) | + + + + + + + | Performing | Address | City/State/Zipcode | Phone Number | | Organization | | | | + + + + + | [facility] | [address] | [place] | | | [facility] | | [address] | | | - BLOOD BANK | | | | + + + + + CBC no Differential (07/31/2016 7:10 PM PST) + + + + + + | Component | Value | Ref Range | Performed | Pathologist | | | | | At | Signature | + + + + + + | WBC | 10.9 | 4.0 - 11.0 K/uL | [facility] | | | | | | [facility] | | | | | | MEDICAL | | | | | | CENTER - | | | | | | LABORATORY | | + + + + + + | RBC | 3.86 | 3.70 - 5.20 | [facility] | | | | | M/uL | [facility] | | | | | | MEDICAL | | | | | | CENTER - | | | | | | LABORATORY | | + + + + + + | Hemoglobin | 9.5 (L) | 11.5 - 16.0 | [facility] | | | | | g/dL | [facility] | | | | | | MEDICAL | | | | | | CENTER - | | | | | | LABORATORY | | + + + + + + | Hematocrit | 29.3 (L) | 34.0 - 47.0 % | [facility] | | | | | | [facility] | | | | | | MEDICAL | | | | | | CENTER - | | | | | | LABORATORY | | + + + + + + | MCV | 75.9 (L) | 83.0 - 101.0 fL | [facility] | | | | | | [facility] | | | | | | MEDICAL | | | | | | CENTER - | | | | | | LABORATORY | | + + + + + + | MCH | 24.5 (L) | 28.0 - 35.0 pg | [facility] | | | | | | [facility] | | | | | | MEDICAL | | | | | | CENTER - | | | | | | LABORATORY | | + + + + + + | MCHC | 32.3 | 32.0 - 36.0 | [facility] | | | | | g/dL | [facility] | | | | | | MEDICAL | | | | | | CENTER - | | | | | | LABORATORY | | + + + + + + | RDW-CV | 16.5 (H) | <15.0 % | [facility] | | | | | | [facility] | | | | | | MEDICAL | | | | | | CENTER - | | | | | | LABORATORY | | + + + + + + | Platelet | 258 | 140 - 440 K/uL | [facility] | | | Count | | | [facility] | | | | | | MEDICAL | | | | | | CENTER - | | | | | | LABORATORY | | + + + + + + | MPV | 7.6 | fL | [facility] | | | [...] [address] | [place] | [phone] | | [facility] | | [address] | | | - LABORATORY | | | | + + + + + Culture,Strep Group B (07/20/2016) + + + + + + | Component | Value | Ref Range | Performed | Pathologist | | | | | At | Signature | + + + + + + | GBS result, | Positive (A) | Negative | | | | External | | | | | + + + + + + + + | Specimen | + + | Specimen from | | genital system | | (specimen) - | | Vagina/Rectum | + + Rubella Ab, IgG (07/04/2016) + +--------+ + + + | Component | Value | Ref Range | Performed | Pathologist | | | | | At | Signature | + +--------+ + + + | Rubella, | Immune | | | | | External | | | | | + +--------+ + + + + + | Specimen | + + | Blood specimen | | (specimen) | + + Rapid Plasma Reagadriana, Qual (07/04/2016) + + + + + + | Component | Value | Ref Range | Performed | Pathologist | | | | | At | Signature | + + + + + + | RPR, | Non-Reactive | Non-Reactive | | | | External | | | | | + + + + + + + + | Specimen | + + | Blood specimen | | (specimen) | + + HIV 1 and 2 Ab, Reflex (07/04/2016) + + + + + + | Component | Value | Ref Range | Performed | Pathologist | | | | | At | Signature | + + + + + + | HIV, | Non-Reactive | Non-Reactive | | | | External | | | | | + + + + + + + + | Specimen | + + | Blood specimen | | (specimen) | + + Hepatitis B Surface Ag (07/04/2016) + + + + + + | Component | Value | Ref Range | Performed | Pathologist | | | | | At | Signature | + + + + + + | HBsAg, | Non-Reactive | Non-Reactive | | | | External | | | | | + + + + + + + + | Specimen | + + | Blood specimen | | (specimen) | + + Antibody Screen (07/04/2016) + + + + + + | Component | Value | Ref Range | Performed | Pathologist | | | | | At | Signature | + + + + + + | Antibody | Negative | Negative | | | | Screen, | | | | | | External | | | | | + + + + + + + + | Specimen | + + | Blood specimen | | (specimen) | + + C. trachomatis and N. gonorrhoeae, NAAT (04/25/2016) + + + + + + | Component | Value | Ref Range | Performed | Pathologist | | | | | At | Signature | + + + + + + | Chlamydia, | Negative | Negative | | | | External | | | | | + + + + + + C. TRACHOMATIS AND N. GONORRHOEAE AND T. VAGINALIS, NAAT (APTIMA) (04/25/2016) + + + + + + | Component | Value | Ref Range | Performed | Pathologist | | | | | At | Signature | + + + + + + | GC External | Negative | Negative | | | + + + + + + + + | Specimen | + + | Specimen from | | genital system | | (specimen) | + + documented in this encounter Visit Diagnoses + + | Diagnosis | + + | 36 weeks gestation of - Primary state, incidental | + + documented in this encounter Administered Medications + +--------+ +------+------+------+ | Medication Order | MAR | Action | Dose | Rate | Site | | | Action | Date | | | | + +--------+ +------+------+------+ | benzocaine 20%-menthol | Given | 08/01/19 | | | | | (DERMOPLAST) topical spray | | 17 10:11 | | | | | Topical, EVERY 6 HOURS PRN, Pain, | | PM PST | | | | | Starting 07/31/16 at 2044, | | | | | | | | | | | | | + +--------+ +------+------+------+ +---+---+ | | | +---+---+ + +-------+ +--------+---+---+ | docusate sodium (COLACE) | Given | 08/02/19 | 200 mg | | | | capsule 200 mg 200 mg, Oral, | | 17 8:26 | | | | | NIGHTLY, First dose on 07/31/16 | | PM PST | | | | | at 2115, Hold for loose stools, | | | | | | | | | | | | | + +-------+ +--------+---+---+ +-------+ +--------+---+---+ | Given | 08/01/19 | 200 mg | | | | | 17 9:19 | | | | | | PM PST | | | | +-------+ +--------+---+---+ +---+---+ | | | +---+---+ + +-------+ +--------+---+---+ | ferrous sulfate tablet 325 mg | Given | 08/03/19 | 325 mg | | | | 325 mg, Oral, 2 TIMES DAILY WITH | | 17 6:00 | | | | | BREAKFAST & DINNER, First dose | | PM PST | | | | | (after last modification) on Mon | | | | | | | 08/01/16 at 0900, | | | | | | + +-------+ +--------+---+---+ +-------+ +--------+---+---+ | Given | 08/03/19 | 325 mg | | | | | 17 8:28 | | | | | | AM PST | | | | +-------+ +--------+---+---+ | Given | 08/02/19 | 325 mg | | | | | 17 6:53 | | | | | | PM PST | | | | +-------+ +--------+---+---+ +---+---+ | | | +---+---+ + +-------+ +--------+---+---+ | ibuprofen (ADVIL,MOTRIN) tablet | Given | 08/03/19 | 600 mg | | | | 600 mg 600 mg, Oral, EVERY 6 | | 17 8:28 | | | | | HOURS PRN, Pain, Starting Sun | | AM PST | | | | | 07/31/16 at 2045, If urine output | | | | | | | is less than 240 mL/8 hours (30 | | | | | | | mL/hr) or if signs of bleeding, | | | | | | | contact MD and hold ibuprofen., | | | | | | | | | | | | | + +-------+ +--------+---+---+ +-------+ +--------+---+---+ | Given | 08/02/19 | 600 mg | | | | | 17 6:53 | | | | | | PM PST | | | | +-------+ +--------+---+---+ | Given | 08/02/19 | 600 mg | | | | | 17 11:00 | | | | | | AM PST | | | | +-------+ +--------+---+---+ +---+---+ | | | +---+---+ + +-------+ + +---+ + | oxytocin (PITOCIN) injection 10 | Given | 08/01/19 | 10 Units | | Leg-Righ | | Units 10 Units, Intramuscular, | | 17 8:10 | | | t Upper | | PRN, for after delivery bleeding | | PM PST | | | | | and no IV present, Starting Sun | | | | | | | 07/31/16 at 1847, For 2 doses, May | | | | | | | repeat x 1 after 5 minutes for | | | | | | | total of 2 doses, Labor and | | | | | | | Delivery | | | | | | + +-------+ + +---+ + +---+---+ | | | +---+---+ + +-------+ + +---+---+ | 27-0.8 mg multivitamin | Given | 08/03/19 | 1 tablet | | | | 1 tablet 1 tablet, Oral, DAILY, | | 17 8:28 | | | | | First dose on 08/01/16 at | | AM PST | | | | | 0900, | | | | | | + +-------+ + +---+---+ +-------+ + +---+---+ | Given | 08/02/19 | 1 tablet | | | | | 17 11:00 | | | | | | AM PST | | | | +-------+ + +---+---+ +---+---+ | | | +---+---+ documented in this encounter
--- OUTSIDE RECORDS SUMMARY | ~2019-04-14 | XMS | Encounter Summary ---
Demographics + + + | Address | [address] | | | [place] [address] | + + + | Home Phone | | + + + | Preferred Language | Unknown | + + + | Marital Status | Single | + + + | Advent Affiliation | Unknown | + + + | Race | Unknown | + + + | Ethnic Group | Unknown | + + + Author + + + | Author | [facility] | | | and [place] | + + + | Organization | [facility] | | | and [place] [...] Team Providers + +------+ + | Care Sloop Captain Name | Role | Phone | + +------+ + PCP | Unavailable | + +------+ + Encounter Details +--------+ + + + + | Date | Type | Department | Care Team | Description | +--------+ + + + + | 07/05/ | Hospital | [facility] | Gagandeep Humphries | | | 2009 | Encounter | [facility] | MD [place] [address] | | | | | [place] [address] | [address] | | | | | [place], [place] | [place] [address] | | | | | [address] | [phone] | | | | | [phone] | | | +--------+ + + + [...]
--- OUTSIDE RECORDS SUMMARY | ~2019-04-14 | XMS | Encounter Summary ---
Demographics + + + | Address | [address] | | | [place] [address] | + + + | Home Phone | | + + + | Preferred Language | Unknown | + + + | Marital Status | Single | + + + | Methodist Affiliation | Unknown | + + + | Race | Unknown | + + + | Ethnic Group | Unknown | + + + Author + + + | Author | [facility] | | | and [place] | + + + | Organization | [facility] | | | and [...] Team Providers + +------+ + | Care Windows Systems Administrator Name | Role | Phone | + [...] | SR | | | | | [phone] | | | +--------+ + + + [...]
--- OUTSIDE RECORDS SUMMARY | ~2019-04-14 | XMS | Encounter Summary ---
Demographics + + + | Address | [address] | | | [place] [address] | + + + | Home Phone | | + + + | Preferred Language | Unknown | + + + | Marital Status | Single | + + + | Mandaeism Affiliation | Unknown | + + + | Race | Unknown | + + + | Ethnic Group | Unknown | + + + Author + + + | Author | [facility] | | | and [place] | + + + | Organization | [facility] | | | and [place] | + + + | Address | Unknown | + + + | Phone | Unavailable | + + + Support + + +---------+ + | Name | Relationship | Address | Phone | + + +---------+ + | Jolie Stcok | ECON | Unknown | | + + +---------+ + Care Team Providers + +------+ + | Care Orthopaedic Doctor Name | Role | Phone | + +------+ + PCP | Unavailable | + +------+ + Encounter Details +--------+ + + + + | Date | Type | Department | Care Team | Description | +--------+ + + + + | 02/02/ | Hospital | [facility] | Nestor Harden, | | | 1998 | Encounter | MED CTR GENERIC OP | [id number] | | | | | CONV DEPT [address] | [place] | | | | | [place], | [place] [address] | | | | | [place] [address] | [phone] | | | | | [phone] | | | +--------+ + + + [...]
--- OUTSIDE RECORDS SUMMARY | ~2019-04-14 | XMS | Encounter Summary ---
Demographics + + + | Address | [address] | | | [place] [address] | + + + | Home Phone | | + + + | Preferred Language | Unknown | + + + | Marital Status | Single | + + + | Baptism Affiliation | Unknown | + + + | Race | Unknown | + + + | Ethnic Group | Unknown | + + + Author + + + | Author | [facility] | | | and [place] | + + + | Organization | [facility] | | | and [place] [...] Team Providers + +------+ + | Care Wrist Hemmer Name | Role | Phone | + +------+ + PCP | Unavailable | + +------+ + Encounter Details +--------+ + + + + | Date | Type | Department | Care Team | Description | +--------+ + + + + | 11/20/ | Hospital | [facility] | Quique, | | | 2008 | Encounter | MED CTR EMERGENCY | David Thomas MD [address] | | | | | [place] [address] | [place] | | | | | [place], [place] | [place] [address] | | | | | [address] | [phone] | | | | | [phone] | | | +--------+ + + + [...]
--- OUTSIDE RECORDS SUMMARY | ~2019-04-14 | XMS | Encounter Summary ---
Demographics + + + | Address | [address] | | | [place] [address] | + + + | Home Phone | | + + + | Preferred Language | Unknown | + + + | Marital Status | Single | + + + | Buddhism Affiliation | Unknown | + + + | Race | Unknown | + + + | Ethnic Group | Unknown | + + + Author + + + | Author | [facility] | | | and [place] | + + + | Organization | [facility] | | | and [place] [...] Team Providers + +------+ + | Care Traffic Expert Name | Role | Phone | + +------+ + PCP | Unavailable | + +------+ + Encounter Details +--------+ + + + + | Date | Type | Department | Care Team | Description | +--------+ + + + + | 12/17/ | Hospital | [facility] | Nestor Harden, | | | 2008 | Encounter | MED CTR LABORATORY | [id number] | | | | | [address] | [place] | | | | | [place] | [place], [place] [address] | | | | | [address] | [phone] | | | | | [phone] | | | +--------+ + + + [...]
--- OUTSIDE RECORDS SUMMARY | ~2019-04-14 | XMS | Encounter Summary ---
Demographics + + + | Address | [address] | | | [place] [address] | + + + | Home Phone | | + + + | Preferred Language | Unknown | + + + | Marital Status | Single | + + + | Yazidism Affiliation | Unknown | + + + | Race | Unknown | + + + | Ethnic Group | Unknown | + + + Author + + + | Author | [facility] | | | and [place] | + + + | Organization | [facility] | | | and [place] [...] Team Providers + +------+ + | Care Security Door Installer Name | Role | Phone | + +------+ + PCP | Unavailable | + +------+ + Encounter Details +--------+ + + + + | Date | Type | Department | Care Team | Description | +--------+ + + + + | 06/08/ | Hospital | [facility] | Gagandeep Humphries | | | 2009 - | Encounter | MED CTR EMERGENCY | MD Taras [address] | | | | | [place] [address] | [place] | | | 06/09/ | | [place] | [place] [address] | | | 2009 | | [address] | [phone] | | | | | [phone] | | | +--------+ + + + [...]
--- OUTSIDE RECORDS SUMMARY | ~2019-04-14 | XMS | Encounter Summary ---
Demographics + + + | Address | [address] | | | [place] [address] | + + + | Home Phone | | + + + | Preferred Language | Unknown | + + + | Marital Status | Single | + + + | Mormonism Affiliation | Unknown | + + + | Race | Unknown | + + + | Ethnic Group | Unknown | + + + Author + + + | Author | [facility] | | | and [place] | + + + | Organization | [facility] | | | and [...] Team Providers + +------+ + | Care Glass Forming Engineer Name | Role | Phone | + [...] | | | | CENTER [address] | [facility] [place] | Dx); Palpitations | | 01/11/ | | [place] | [place] [address] | | | 2015 | | [address] | [phone] | | | | | [phone] | | | +--------+ + + + [...] through Care Everywhere.CHEST PAIN, [facility] ERTAIN CAUSE (BRUNEIAN)PALPITATIONS (BRUNEIAN)documented in this encounter Medications at Time of [...] y.o. MEDICAL RECORD | | | NUMBER: [id number] PRIMARY CARE: No Physician on file | | | READING DIRECTOR BUSINESS: Leta Iglesias MD 24-HOUR HOLTER | | [...] | diary. Signed by: Leta Iglesias MD [facility] 01/19/2016, | | | 10:08 | [...] | | | | | | [employer] | | | | | [...] [address] | [place] | [phone] | | [facility] | | [address] | | | - LABORATORY | | [...] + | [address] | [address] | [place] | [phone] | | [facility] | | [address] | | | - LABORATORY | | [...] [address] | [place] | [phone] | | [facility] | | [address] | | | - LABORATORY | | [...] mL/min/1.73m2 | [facility] | | | COLOMBIAN | RATE,ESTIMATED | | MEDICAL | | | | mL/min/1.36z7Qttz than | | CENTER - | | [...] | [address] | [place] | [phone] | | [facility] | | [address] | | | - LABORATORY | | [...] [address] | [place] | [phone] | | [facility] | | [address] | | | - LABORATORY | | [...] | Quantitativ | quantitative D-Dimer | | [facility] | | | e | assay has [...] [address] | [place] | [phone] | | [facility] | | [address] | | | - LABORATORY | | [...] [address] | [place] | [phone] | | [facility] | | [address] | | | - LABORATORY | | [...] MD | | | | | | ([id number]) on 01/12/2016 | | | | | [...]
--- OUTSIDE RECORDS SUMMARY | ~2019-04-14 | XMS | Encounter Summary ---
Demographics + + + | Address | [address] | | | [place] [address] | + + + | Home Phone [...] | [facility] | | | and [place] [...] Team Providers + +------+ + | Care Store Stocker Name | Role | Phone | + +------+ + PCP | Unavailable | + +------+ + Encounter Details +--------+ + + + + | Date | Type | Department | Care Team | Description | +--------+ + + + + | 10/05/ | Hospital | [facility] | | | | 2008 | Encounter | MED CTR EMERGENCY | | | | | | CENTER [address] | | | | | | [place] | | | | | | [address] | | | | | | [phone] | | | +--------+ + + + [...]
--- OUTSIDE RECORDS SUMMARY | ~2019-04-14 | XMS | Encounter Summary ---
Demographics + + + | Address | [address] | | | [place] [address] | + + + | Home Phone | | + + + | Preferred Language | Unknown | + + + | Marital Status | Single | + + + | Shinto Affiliation | Unknown | + + + | Race | Unknown | + + + | Ethnic Group | Unknown | + + + Author + + + | Author | [facility] | | | and [place] | + + + | Organization | [facility] | | | and [place] [...] Team Providers + +------+ + | Care Booth Cleaner Name | Role | Phone | + [...] | | | | | | | [place] [address] | | | | | | | Phone: | | | | | | | [phone] | | | | | | | Fax: | | | | | | | [phone] | | +--------+ + + + + [...] | | | | | | | [place] [address] | | | | | | | Phone: | | | | | | | [phone] | | | | | | | Fax: | | | | | | | [phone] | | +--------+ + + + + [...] + + | 07/31/ | Hospital | [facility] | Rodri Ogden | 36 weeks gestation | | 2017 - | Encounter | MED CTR MOTHER BABY | MD Keshav [address] | of | | | | [address] | [place] | (Primary Dx) | | 08/02/ | | [place] | [id number] | | | 2016 | | [address] | | | | | | [phone] | Angelina Brooks | | | | | | DO Nereida [address] | | | | | | [place] | | | | | | [id number] | | | | | | | [...] 08/02/2016 ATTENDING CLINICIAN: Rodri Ogden MD PRIMARY WATER LEAK REPAIRER: No Physician on file HISTORY OF PRESENT [...] IV attempts x3 unsuccessful by 2 RN's. [facility] shift charge will attempt. 7:0 4 [address] [...] [address] | [address] | [place] | [phone] | | [facility] | | [address] | | | - LABORATORY | | [...] [address] | [place] | [phone] | | [facility] | | [address] | | | - LABORATORY | | [...] St | [place] | | | [facility] | | [address] | | | - BLOOD BANK | [...] [facility] | | | | | | [facility] | | | | | | MEDICAL | | | | | | CENTER - | | | | | | LABORATORY | | + + + + + + | RBC | 3.86 | 3.70 - 5.20 | [facility] | | | | | M/uL | [facility] | | | | | | [...] [address] | [place] | [phone] | | [facility] | | [address] | | | - LABORATORY | | [...]
--- OUTSIDE RECORDS SUMMARY | ~2019-04-14 | XMS | Encounter Summary ---
Demographics + + + | Address | [address] | | | [place] [address] | + + + | Home Phone | | + + + | Preferred Language | Unknown | + + + | Marital Status | Single | + + + | Scientologist Affiliation | Unknown | + + + | Race | Unknown | + + + | Ethnic Group | Unknown | + + + Author + + + | Author | [facility] | | | and [place] | + + + | Organization | [facility] | | | and [place] [...] Team Providers + +------+ + | Care Bearingizer Name | Role | Phone | + +------+ + PCP | Unavailable | + +------+ + Encounter Details +--------+ + + + + | Date | Type | Department | Care Team | Description | +--------+ + + + + | 08/06/ | Hospital | [facility] | Heidi Zimmerman | | | 2011 | Encounter | MED CTR EMERGENCY | DO Raymond Solomon | | | | | CENTER [address] | [facility] [place] | | | | | [place], [place] | [address] | | | | | [address] | | | | | | [phone] | | | +--------+ + + + [...] Performed At | + + + | [facility] Diagnostic Imaging Department | [place] | | [address] | [facility] | | LEFT KNEE, LIMITED [...] | | | Transcribed Date/Time: 08/08/2011 08:51 Attending Psychiatrist: | | | <Electronically Signed by Jeremiah Schuster MD> 08/08/11 0909 | | + + + + + | Procedure Note | + + | Aris Zaragoza Conversion - 07/05/2013 4:54 PM [facility] | | Diagnostic Imaging Department [address] [facility], [place] | | LEFT KNEE, LIMITED TWO VIEWS: [...] 08:47 | |Transcribed Date/Time: 08/08/2011 08:51 | |Attending Psychiatrist: INDU | |<Electronically Signed by Jeremiah Schuster [...]
--- OUTSIDE RECORDS SUMMARY | ~2019-04-14 | XMS | Encounter Summary ---
Demographics + + + | Address | [address] | | | [place] [address] | + + + | Home Phone [...] + + | Organization | [facility] | | | and [place] [...] Team Providers + +------+ + | Care Correction Officer [place] [facility] Name | Role | Phone | + +------+ + PCP | Unavailable | + +------+ + Encounter Details +--------+ + + + + | Date | Type | Department | Care Team | Description | +--------+ + + + + | 08/15/ | Emergency | [facility] | No, Physician | Surgical or other | | 2015 | | MED CTR EMERGENCY | | procedure not | | | | [place] [address] | | carried out because | | | | [place] | | of patient's | | | | [address] | | decision (Primary | | | | [phone] | | Dx) | +--------+ + + + + Social [...] + + +---------+ + + | | 1-2 tablets by mouth | | 0 | 10/04/19 | | | HYDROcodone-acetamin | every 4 hours as | | | 12 | 5 | | ophen (NORCO) 5-325 | needed for pain | | | | | | mg per tablet | | | | | | [...] + | Diagnosis | + + | Surgical or other procedure not carried out because of patient's decision - Primary | + + documented in this encounter"
--- OUTSIDE RECORDS SUMMARY | ~2019-04-14 | XMS | Encounter Summary ---
Demographics + + + | Address | [address] | | | [place] [address] | + + + | Home Phone | | + + + | Preferred Language | Unknown | + + + | Marital Status | Single | + + + | Mandaeism Affiliation | Unknown | + + + | Race | Unknown | + + + | Ethnic Group | Unknown | + + + Author + + + | Author | [facility] | | | and [place] | + + + | Organization | [facility] | | | and [place] [...] Team Providers + +------+ + | Care Sling Operator Name | Role | Phone | + +------+ + PCP | Unavailable | + +------+ + Encounter Details +--------+ + + + + | Date | Type | Department | Care Team | Description | +--------+ + + + + | 12/25/ | Hospital | [facility] | | | | 2001 | Encounter | MED CTR EMERGENCY | | | | | | CENTER [address] | | | | | | [place] | | | | | | [address] | | | | | | [phone] | | | +--------+ + + + [...]
--- OUTSIDE RECORDS SUMMARY | ~2019-04-14 | XMS | Encounter Summary ---
Demographics + + + | Address | [address] | | | [place] [address] | + + + | Home Phone | | + + + | Preferred Language | Unknown | + + + | Marital Status | Single | + + + | Worship Affiliation | Unknown | + + + | Race | Unknown | + + + | Ethnic Group | Unknown | + + + Author + + + | Author | [facility] | | | and [place] | + + + | Organization | [facility] | | | and [...] Team Providers + +------+ + | Care Elementary Educator Name | Role | Phone | + +------+ + PCP | Unavailable | + +------+ + Encounter Details +--------+ + + + + | Date | Type | Department | Care Team | Description | +--------+ + + + + | 03/25/ | Hospital | [facility] | Roxie Esposito | | | 2007 | Encounter | MED CTR EMERGENCY | Vijaya Ervin MD [address] | | | | | CENTER [address] | [facility] | | | | | [place], [place] | [place] [address] | | | | | [address] | [phone] | | | | | [phone] | | | +--------+ + + + [...]
--- OUTSIDE RECORDS SUMMARY | ~2019-04-14 | XMS | Encounter Summary ---
Demographics + + + | Address | [address] | | | [place] [address] | + + + | Home Phone | | + + + | Preferred Language | Unknown | + + + | Marital Status | Single | + + + | Latter-Day Affiliation | Unknown | + + + | Race | Unknown | + + + | Ethnic Group | Unknown | + + + Author + + + | Author | [facility] | | | and [place] | + + + | Organization | [facility] | | | and [place] [...] Team Providers + +------+ + | Care Epidemiology Investigator Name | Role | Phone | + +------+ + | No, Physician | PCP | Unavailable | + +------+ + Encounter Details +--------+ + + + + | Date | Type | Department | Care Team | Description | +--------+ + + + + | 07/23/ | [facility] | [facility] | Rodri Ogden | | | 2017 | Encounter | MED CTR MOTHER BABY | MD Keshav [address] [facility] | | | | | [address] | [place] | | | | | [place] | [address] | | | | | [address] | | | | | | [phone] | | | +--------+ + + + [...] [place]. | [address] | [place], [place] | [phone] | | [facility] | | [address] | | | - LABORATORY | | | | + + + + + documented in this encounter Visit Diagnoses Not on filedocumented in this encounter"
--- OUTSIDE RECORDS SUMMARY | ~2019-04-14 | XMS | Encounter Summary ---
Demographics + + + | Address | [address] | | | [place] [address] | + + + | Home Phone | | + + + | Preferred Language | Unknown | + + + | Marital Status | Single | + + + | Anabaptist Affiliation | Unknown | + + + | Race | Unknown | + + + | Ethnic Group | Unknown | + + + Author + + + | Author | [facility] | | | and [place] | + + + | Organization | [facility] | | [...] Team Providers + +------+ + | Care Hop Grower Name | Role | Phone | + +------+ + PCP | Unavailable | + +------+ + Encounter Details +--------+ + + + + | Date | Type | Department | Care Team | Description | +--------+ + + + + | 05/25/ | Hospital | [facility] | | | | 2010 | Encounter | MED CTR EMERGENCY | | | | | | CENTER [address] | | | | | | [place] | | | | | | [address] | | | | | | [phone] | | | +--------+ + + + [...]
--- OUTSIDE RECORDS SUMMARY | ~2019-04-14 | XMS | Encounter Summary ---
Demographics + + + | Address | [address] | | | [place] [address] | + + + | Home Phone | | + + + | Preferred Language | Unknown | + + + | Marital Status | Single | + + + | Rastafari Affiliation | Unknown | + + + | Race | Unknown | + + + | Ethnic Group | Unknown | + + + Author + + + | Author | [facility] | | | and [place] | + + + | Organization | [facility] | | | and [...] Team Providers + +------+ + | Care Programming Intern Name | Role | Phone | + +------+ + PCP | Unavailable | + +------+ + Encounter Details +--------+ + + + + | Date | Type | Department | Care Team | Description | +--------+ + + + + | 03/25/ | Hospital | [facility] | Roxie Esposito | | | 2007 | Encounter | MED CTR EMERGENCY | Vijaya Ervin MD [address] | | | | | CENTER [address] | [facility] | | | | | [place], [place] | [place] [address] | | | | | [address] | [phone] | | | | | [phone] | | | +--------+ + + + [...]
--- OUTSIDE RECORDS SUMMARY | ~2019-04-14 | XMS | Encounter Summary ---
Demographics + + + | Address | [address] | | | [place] [address] | + + + | Home Phone | | + + + | Preferred Language | Unknown | + + + | Marital Status | Single | + + + | Sabianism Affiliation | Unknown | + + + | Race | Unknown | + + + | Ethnic Group | Unknown | + + + Author + + + | Author | [facility] | | | and [place] | + + + | Organization | [facility] | | | and [...] Team Providers + +------+ + | Care Home Health Travel Pt Name | Role | Phone | + +------+ + PCP | Unavailable | + +------+ + Encounter Details +--------+ + + + + | Date | Type | Department | Care Team | Description | +--------+ + + + + | 02/09/ | Hospital | [facility] | Gagandeep Humphries | | | 2008 | Encounter | MED CTR EMERGENCY | MD Taras [address] | | | | | [place] [address] | [place] | | | | | [place], [place] | [place] [address] | | | | | [address] | [phone] | | | | | [phone] | | | +--------+ + + + [...]
--- OUTSIDE RECORDS SUMMARY | ~2019-04-14 | XMS | Encounter Summary ---
Demographics + + + | Address | [address] | | | [place] [address] | + + + | Home Phone | | + + + | Preferred Language | Unknown | + + + | Marital Status | Single | + + + | Episcopalian Affiliation | Unknown | + + + | Race | Unknown | + + + | Ethnic Group | Unknown | + + + Author + + + | Author | [facility] | | | and [place] | + + + | Organization | [facility] | | | and [...] Team Providers + +------+ + | Care Stock Replenisher Name | Role | Phone | + [...] | | | | CENTER [address] | [address] | (Primary Dx); | | | | [place], [place] | [place], [place] | Bilateral lower leg | | | | [address] | [address] | cellulitis | | | | [phone] | | | | | | | Santiago Zaragoza MD | | | | | | [address] | | | | | | [place], [place] | | | | | | [address] | | | | | | | [...] be sent through Care Everywhere.Thrombophlebiti s Superficial (Kyrgyz)documented in this encounter Medications at Time of [...] | | MEDICAL | | | | mL/min/1.69x3Zuvw than | | CENTER - | | [...] | | Protein | | | [facility] | | [...] [address] | [place] | [phone] | | [facility] | | [address] | | | - LABORATORY | | [...] [address] | [place] | [phone] | | [facility] | | [address] | | | - LABORATORY | | [...] [address] | [place] | [phone] | | [facility] | | [address] | | | - LABORATORY | | [...] MD | | | | | | ([id number]) on 01/10/2017 | | | | | [...]
--- OUTSIDE RECORDS SUMMARY | ~2019-04-14 | XMS | Encounter Summary ---
Demographics + + + | Address | [address] | | | [place] [address] | + + + | Home Phone [...] + + + | Author | [facility] | | | and [place] | + + + | Organization | [facility] | | | and [place] [...] Providers + +------+ + | Care Security Attendant Name | Role | Phone | [...] | procedure not | | | | [facility] [address] | | carried out because | | | | [place] | | of patient's | | | | [address] | | decision (Primary | | | | [phone] | | Dx) | +--------+ + + [...]
--- OUTSIDE RECORDS SUMMARY | ~2019-04-14 | XMS | Encounter Summary ---
Demographics + + + | Address | [address] | | | [place] [address] | + + + | Home Phone | | + + + | Preferred Language | Unknown | + + + | Marital Status | Single | + + + | Sikh Affiliation | Unknown | + + + | Race | Unknown | + + + | Ethnic Group | Unknown | + + + Author + + + | Author | [facility] | | | and [place] | + + + | Organization | [facility] | | | and [...] Team Providers + +------+ + | Care Supervisor Grower Name | Role | Phone | [...] + + | 10/08/ | Emergency | [facility] | Quique, | Acute gastritis | | 2015 | | MED CTR EMERGENCY | David Thomas MD [address] | without hemorrhage | | | | CENTER [address] | [address] [place] | (Primary Dx); | | | | [place] | [place] [address] | Vomiting | | | | [address] | [phone] | | | | | [phone] | | | +--------+ + + + [...] in OB Care, Pediatrics [address] [place] [address] documented in this encounter Medications at Time [...]
--- OUTSIDE RECORDS SUMMARY | ~2019-04-14 | XMS | Encounter Summary ---
Demographics + + + | Address | [address] | | | [place] [address] | + + + | Home Phone | | + + + | Preferred Language | Unknown | + + + | Marital Status | Single | + + + | Cheondoism Affiliation | Unknown | + + + | Race | Unknown | + + + | Ethnic Group | Unknown | + + + Author + + + | Author | [facility] | | | and [place] | + + + | Organization | [facility] | | | and [...] Team Providers + +------+ + | Care Ropewalk Rope Maker Name | Role | Phone | + +------+ + PCP | Unavailable | + +------+ + Encounter Details +--------+ + + + + | Date | Type | Department | Care Team | Description | +--------+ + + + + | 04/30/ | Hospital | [facility] | Nestor Harden, | | | 1998 - | Encounter | [facility] | [id number] | | | | | [facility] [address] | [address] | | | 05/02/ | | Sue Abebe, | [place] [address] | | | 1998 | | [place] [address] | [phone] | | | | | [phone] | | | +--------+ + + + [...]
--- OUTSIDE RECORDS SUMMARY | ~2019-04-14 | XMS | Encounter Summary ---
Demographics + + + | Address | [address] | | | [place] [address] | + + + | Home Phone | | + + + | Preferred Language | Unknown | + + + | Marital Status | Single | + + + | Amish Affiliation | Unknown | + + + | Race | Unknown | + + + | Ethnic Group | Unknown | + + + Author + + + | Author | [facility] | | | and [place] | + + + | Organization | [facility] | | [...] Team Providers + +------+ + | Care Mobile Game Engineer Name | Role | Phone | + +------+ + PCP | Unavailable | + +------+ + Encounter Details +--------+ + + + + | Date | Type | Department | Care Team | Description | +--------+ + + + + | 02/09/ | Hospital | [facility] | Gagandeep Humphries | | | 2008 | Encounter | [facility] | [address] | | | | [address] | [place] | | | | | [place], [place] | [place] [address] | | | | | [address] | [phone] | | | | | [phone] | | | +--------+ + + + [...]
--- OUTSIDE RECORDS SUMMARY | ~2019-04-14 | XMS | Encounter Summary ---
Demographics + + + | Address | [address] | | | [place] [address] | + + + | Home Phone | | + + + | Preferred Language | Unknown | + + + | Marital Status | Single | + + + | Jainism Affiliation | Unknown | + + + | Race | Unknown | + + + | Ethnic Group | Unknown | + + + Author + + + | Author | [facility] | | | and [place] | + + + | Organization | [facility] | | | and [place] [...] Team Providers + +------+ + | Care Gelatin Maker Utility Name | Role | Phone | + [...] | | | | CENTER [address] | [place], [place] | | | | | [place], [place] | [address] | | | | | [address] | | | | | | [phone] | | | +--------+ + + + [...]
--- OUTSIDE RECORDS SUMMARY | ~2019-04-14 | XMS | Clinical Summary ---
Demographics + + + | Address | [address] | | | [place] [address] | + + + | Home Phone | | + + + | Preferred Language | Unknown | + + + | Marital Status | Single | + + + | Restorationism Affiliation | Unknown | + + + | Race | Unknown | + + + | Ethnic Group | Unknown | + + + Author + + + | Author | [facility] | | | and [place] | + + + | Organization | [facility] | | [...] Team Providers + +------+ + | Care Ear Pull Machine Operator Name | Role | Phone | [...] | [employer] | [facility] | [id number] | | [phone] | | [facility] | [...] al/Fam | | 1986 | [phone] | [place], [place] | | | [place] | | | [address] (Home) | [phone] | + +--------+ +--------+ + + Advance Directives + + + + + | Type | Date Recorded | Patient | Explanation | | | | Road Builder | | + + + + + | Power of | | | | | Real Estate Agent/Broker | | | | + + + [...]
[2019-04-14] MEDS ORDERED: VENTOLIN HFA18 GM INH (18:42)
[2019-04-14] MEDS ORDERED: AUGMENTIN 875-1 EACH PO (19:22)
== END 2019-04-14 19:35 | disposition home or self-care (01) ==
LOC: ED 18:33
PROC: 0HQFXZZ Repair Right Hand Skin, External Approach (ICD-10-PCS; principal; 2019-04-14)
DX: S61.451A Open bite of right hand, initial encounter (principal); W54.0XXA Bitten by dog, initial encounter; F17.200 Nicotine dependence, unspecified, uncomplicated
CPT/HCPCS: 12001; 99283-25